=== PATIENT | female | born 1950 | race Caucasian/White ===

== ENCOUNTER 2020-03-02 08:36 | Outpatient (CLI) | payer MEDICARE, SELFPAY ==
[2020-03-02 09:22] LABS: Hematocrit 36.9 % (37.0-47.0); Hemoglobin 12.1 g/dL (12.0-15.0); Mean Corpuscular HGB Conc 32.8 g/dl (32-36); Mean Corpuscular Hemoglobin 32.2 pg (26-34); Mean Corpuscular Volume 98.1 fl (80-100); Mean Platelet Volume 11.4 fl (7.4-10.4); Platelet Count Result 228 k/mm3 (150-375); Red Blood Count 3.76 M/mm3 (4.2-5.4); Red Cell Distribution Width 13.2 % (11.5-14.5); White Blood Count 5.9 K/mm3 (4.5-10.0)
[2020-03-02 09:33] LABS: Hemoglobin A1C 5.7 % (<5.7)
[2020-03-02 09:36] LABS: Alanine Aminotransferase 11 U/L (4-35); Albumin Level 4.4 g/dL (3.5-5.1); Alkaline Phosphatase 113 U/L (38-126); Aspartate Amino Transferase 22 U/L (14-36); Bilirubin,Total 0.2 mg/dL (0.2-1.3); Blood Urea Nitrogen 15 mg/dL (7-17); Calcium 9.2 mg/dL (8.4-10.2); Carbon Dioxide 26 mmol/L (22-30); Chloride 107 mmol/L (98-107); Cholesterol 227 mg/dL (0-200); Estimated Glomerular Filt Rate 50; Glucose 126 mg/dL (65-105); HDL Direct 41 mg/dL; Potassium 4.1 mmol/L (3.4-5.0); Sodium 143 mmol/L (137-145); Triglycerides 176 mg/dL (<150)
[2020-03-02 09:47] LABS: LDL Cholesterol Direct 149 mg/dL
== END 2020-03-02 08:37 | disposition home or self-care (01) ==
PROVIDERS: PCP Internal Medicine; Visit Provider Internal Medicine
DX: R53.83 Other fatigue (principal); I10 Essential (primary) hypertension; E78.5 Hyperlipidemia, unspecified; R73.9 Hyperglycemia, unspecified
CPT/HCPCS: 36415; 80053; 80061; 83036; 84443; 85027

== ENCOUNTER 2020-03-19 10:17 | Outpatient (CLI) | payer MEDICARE, SELFPAY ==
[2020-03-19 10:59] LABS: Add Urine Microscopic? YES; Appearance Urine Cloudy (Clear); Bacteria Urine Trace /hpf; Bilirubin Urine Negative (Negative); Blood Urine 2+ (Negative); Color Urine Yellow (Yellow); Glucose Urine UA Negative (Negative); Ketones Urine Negative (Negative); Leukocyte Esterase Ur 3+ LEU/UL (Negative); Mucus Urine Rare /lpf; Nitrate Urine Negative (Negative); Protein Urine 1+ mg/dL (Negative); RBC Urine 21-50 /hpf (0-2); Specific Grav Ur 1.015 (1.001-1.035); Squamous Epithelial Cell Urine Few /hpf (Few); Urobilinogen Urine Negative mg/dL (<2.0); WBC Urine >75 /hpf
== END 2020-03-19 10:18 | disposition home or self-care (01) ==
PROVIDERS: PCP Internal Medicine; Visit Provider Internal Medicine
DX: R30.0 Dysuria (principal)
CPT/HCPCS: 81001; 87077; 87086; 87088; 87186

== ENCOUNTER 2020-07-27 09:24 | Outpatient (CLI) | payer MEDICARE, SELFPAY ==
--- NOTE | ~2020-07-27 | DEXA_ITS ---
Bone Density Report Name: Bre Huynh Age: 70 Sex: Female Ethnicity: White Date of : 1950 Indication: osteopenia; height loss; Referring Provider: Danyell, Fany Shepherd Study: Bone densitometry was performed. Exam Date: July 27, 2020 Accession number: [id number] Bone Density: Region BMD T-score Z-score Classification AP Spine (L1-L4) 0.989 -0.5 1.4 Normal Femoral Neck (Left) 0.703 -1.3 0.4 Osteopenia Total Hip (Left) 0.805 -1.1 0.3 Osteopenia Total Hip Bilateral Avg 0.782 -1.3 0.1 Osteopenia Femoral Neck (Right) 0.690 -1.4 0.3 Osteopenia Total Hip (Right) 0.758 -1.5 -0.1 Osteopenia World Health Organization criteria for BMD impression classify patients as: Normal (T-score at or above -1.0), Osteopenia (T-score between -1.0 and -2.5), or Osteoporosis (T-score at or below -2.5). 10-year Fracture Risk(1): Major Osteoporotic Fracture 9.3% Hip Fracture 1.1% Reported Risk Factors: [place] (), Neck BMD=0.690, BMI=27.7 (1) FRAX(R) Version 3.08. Fracture probability calculated for an untreated patient. Fracture probability may be lower if the patient has received treatment. Previous Exams: Region Exam Age BMD T-score BMD Change BMD Change Date g/cm2 vs Baseline vs Previous AP Spine(L1-L4) 07/27/2020 70 0.989 -0.5 -0.125(-11.2%) -0.085(-7.9%)# 07/07/2013 62 1.073 0.2 -0.040(-3.6%)# -0.039(-3.5%)# 07/04/2010 59 1.112 0.6 -0.001(-0.1%) -0.001(-0.1%) 03/29/2008 57 1.113 0.6 Total Hip(Left) 07/27/2020 70 0.805 -1.1 0.002(0.2%)# -0.004(-0.5%) 10/28/2017 67 0.808 -1.1 0.005(0.7%)# -0.041(-4.8%)# 07/07/2013 62 0.849 -0.8 0.046(5.8%)# 0.003(0.4%)# 07/04/2010 59 0.846 -0.8 0.043(5.3%)* 0.043(5.3%)* 03/29/2008 57 0.803 -1.1 Total Hip(Right) 07/27/2020 70 0.758 -1.5 -0.025(-3.1%)# -0.061(-7.4%)* 10/28/2017 67 0.819 -1.0 0.036(4.7%)# 0.023(2.9%)# 07/07/2013 62 0.796 -1.2 0.014(1.7%)# 0.003(0.4%)# 07/04/2010 59 0.793 -1.2 0.010(1.3%) 0.010(1.3%) 03/29/2008 57 0.782 -1.3 *Denotes significance at 95% confidence level, LSC for AP Spine = 0.022 g/cm2, LSC for Total Hip = 0.027 g/cm2 Clinical Information Provided by Patient: Patient maximum height was 69 Menopause Age: 54 Drinks caffeinated beverages Onset of menses at age 15 Number of children 3 Impression: The patient has low bone mass, based on the Alexandra
--- NOTE | ~2020-07-27 | MM_ITS ---
EXAMINATION: MM screening nikunj BI w julia HISTORY: Screening mammogram TECHNIQUE: Craniocaudal and mediolateral oblique 3-D tomosynthesis images were obtained and synthetic 2-D images were generated. CAD analysis was submitted and interpreted. COMPARISON: 11/02/2018, 10/28/2017, 10/27/2016 bilateral digital screening mammogram examinations BREAST PARENCHYMAL COMPOSITION: There are scattered areas of fibroglandular density. FINDINGS: Occasional bilateral benign calcifications. There is no evidence of suspicious mass, calcif ication, or architectural distortion to suggest malignancy in either breast. There has been no suspic ious interval change. IMPRESSION: 1. No mammographic evidence of malignancy. 2. Recommend routine screening mammography in one year. BI-RADS Category 1: Negative Reviewed, dictated and finalized at location A. PHONIC CASE MANAGER
== END 2020-07-27 09:25 | disposition home or self-care (01) ==
PROVIDERS: PCP Internal Medicine; Visit Provider Nurse Practitioner Obstetrics & Gynecology
DX: Z12.31 Encounter for screening mammogram for malignant neoplasm of breast (principal); Z78.0 Asymptomatic menopausal state; M85.852 Other specified disorders of bone density and structure, left thigh; M85.851 Other specified disorders of bone density and structure, right thigh; M85.88 Other specified disorders of bone density and structure, other site
CPT/HCPCS: 77063; 77067; 77080

== ENCOUNTER 2021-03-18 08:17 | Outpatient (CLI) | payer MEDICARE, SELFPAY ==
[2021-03-18 08:55] LABS: Basophils Absolute Auto 0.1 K/mm3 (0.0-0.1); Basophils Percent Auto 0.8 % (0.2-1.2); Eosinophils Absolute Auto 0.5 K/mm3 (0-0.3); Eosinophils Percent Auto 7.5 % (0-4.4); Hematocrit 35.7 % (37.0-47.0); Hemoglobin 11.9 g/dL (12.0-15.0); Immature Granulocyte Absolute 0.01 K/mm3 (0.00-0.031); Immature Granulocyte Percent A 0.2 % (0-0.5); Lymphocytes Absolute Auto 2.06 K/mm3 (0.9-3.2); Lymphocytes Percent Auto 32.2 % (18.3-44.2); Mean Corpuscular HGB Conc 33.3 g/dl (32-36); Mean Corpuscular Hemoglobin 32.2 pg (26-34); Mean Corpuscular Volume 96.7 fl (80-100); Mean Platelet Volume 10.4 fl (7.4-10.4); Monocytes Absolute Auto 0.5 K/mm3 (0.1-0.6); Monocytes Percent Auto 7.5 % (2.6-8.5); Neutrophils Absolute Auto 3.3 K/mm3 (1.3-6.7); Neutrophils Percent Auto 51.8 % (45.5-73.1); Platelet Count Result 276 k/mm3 (150-375); Red Blood Count 3.69 M/mm3 (4.2-5.4); Red Cell Distribution Width 12.8 % (11.5-14.5); White Blood Count 6.4 K/mm3 (4.5-10.0)
[2021-03-18 11:15] LABS: Alanine Aminotransferase 14 U/L (4-35); Albumin Level 4.4 g/dL (3.5-5.1); Alkaline Phosphatase 113 U/L (38-126); Anion Gap 12 mmol/L (8-16); Aspartate Amino Transferase 21 U/L (14-36); Bilirubin,Total 0.5 mg/dL (0.2-1.3); Blood Urea Nitrogen 20 mg/dL (7-17); Calcium 9.7 mg/dL (8.4-10.2); Carbon Dioxide 21 mmol/L (22-30); Chloride 106 mmol/L (98-107); Cholesterol 273 mg/dL (0-200); Estimated Glomerular Filt Rate 45; Glucose 114 mg/dL (65-110); HDL Direct 42 mg/dL; Potassium 4.3 mmol/L (3.4-5.0); Sodium 139 mmol/L (137-145); Triglycerides 185 mg/dL (<150)
[2021-03-18 11:34] LABS: LDL Cholesterol Direct 158 mg/dL
[2021-03-18 11:47] LABS: Hemoglobin A1C 5.6 % (<5.7)
[2021-03-18 12:59] LABS: Folic Acid > 20.0 ng/mL (2.76->20)
== END 2021-03-18 08:18 | disposition home or self-care (01) ==
PROVIDERS: PCP Internal Medicine; Visit Provider Internal Medicine
DX: R73.9 Hyperglycemia, unspecified (principal); R53.83 Other fatigue; E78.5 Hyperlipidemia, unspecified
CPT/HCPCS: 36415; 80053; 80061; 82607; 82746; 83036; 84443; 85025

== ENCOUNTER 2021-03-28 14:31 | Emergency (ER) | payer MEDICARE, SELFPAY ==
[2021-03-28 14:45] VITALS: BP 148/72; PULSE 79; RESP 18; TEMP 36.9; O2SAT 100
--- NOTE | 2021-03-28 15:02 | ED.LOWEXIN ---
HPI - Extremity Injury (Lower) General Chief Complaint: Extremity Injury, Lower Stated Complaint: RIGHT ANKLE Source: patient and RN notes reviewed Mode of arrival: ambulatory History of Present Illness HPI Narrative: This is a 67-year-old female that presented to urgent care with right ankle swelling and redness. According to patient she was in her yard approximately 2 days ago when she felt a insect bite her right ankle she spotted insect and think that she might have turned her ankle the wrong way. She is not sure if the swelling and redness is a result of her twisting her ankle or a insect bite .Patient did not do anything at home to relieve her symptoms, she did note that she elevated her legs at night with seem to decrease the swelling. The patient denies SOB, CP, palpitation, extremity numbness, lightheadedness, dizziness, constipation, diarrhea, chills, or fever. Sensations positive no neurovascular defects, patient has full range of motion, pulses are positive. Related Data Home Medications Medication Instructions Recorded Confirmed carvedilol 25 mg PO BID 03/28/21 03/28/21 duloxetine 60 mg PO DAILY 03/28/21 03/28/21 lisinopril 40 mg PO DAILY 03/28/21 03/28/21 Allergies Allergy/AdvReac Type Severity Reaction Status Date / Time metronidazole Allergy Mild NAUSEA/VOMI Verified 03/28/21 14:52 TING propoxyphene Allergy Mild INCREASED Verified 03/28/21 14:52 HR tetracycline Allergy Mild UNKNOWN Verified 03/28/21 14:52 hydrocodone AdvReac Mild INCREASED Verified 03/28/21 14:52 HEART RATE Review of Systems Review of Systems: A 14 organ system Review of Systems was performed and pertinent positives included in the HPI, otherwise remaining ROS is negative. [facility] Family History Family History Sibling Family history of diabetes mellitus in first degree relative, Onset Age: 20 Patient's brother is Family history of lung cancer Mother Patient's mother is Father Patient's father is Social History Social History Smoking status: Never smoker Second hand tobacco smoke exposure: No Alcohol intake: never Substance use: never Gender identity (if verbalized by the patient): Female Exam Narrative: GENERAL: This is a well-nourished, well-developed patient, in no apparent distress. HEAD: normocephalic, atraumatic. EYES: PERRL. Sclera clear/white. Vision is grossly intact. EARS: External ears normal, auditory canals clear and without drainage, TMs normal without perforation. Hearing grossly intact. NOSE: External nose normal with no obvious nasal discharge, nares without redness, no rhinorrhea. THROAT: Mucous membranes moist, posterior pharynx clear. NECK: Neck supple, non-tender without lymphadenopathy, masses or thyromegaly. CARDIOVASCULAR: Regular rate and rhythm without murmurs, gallops, or rubs. RESPIRATORY: Clear to auscultation. Breath sounds equal bilaterally. No wheezes, rales, or rhonchi. GASTROINTESTINAL: Abdomen soft, non-tender, nondistended. Bowel sounds are active. No hepato-splenomegaly, or palpable masses. No guarding. SKIN: warm, intact with no suspicious lesions or rash, good texture and turgor. NEURO: awake, alert, and oriented to person, place and time. There were no obvious focal neurologic abnormalities. Steady gait EXTREMITIES: Normal range of motion. No edema. No calf tenderness. Negative Homans sign bilaterally. BACK: Nontender without deformity or crepitance. No flank tenderness. Course Course Emergency Course: Patient given clindamycin for cellulitis instructed to ice take [id number] Tylenol for fever or pain Vital Signs Vital signs: Vital Signs Temperature 98.5 F 03/28/21 14:45 Pulse Rate 79 03/28/21 14:45 Respiratory Rate 18 03/28/21 14:45 Blood Pressure 148/72 H 03/28/21 14:45
== END 2021-03-28 15:20 | disposition home or self-care (01) ==
PROVIDERS: Emergency Provider Nurse Practitioner; PCP Internal Medicine
DX: L03.116 Cellulitis of left lower limb (principal); S90.561A Insect bite (nonvenomous), right ankle, initial encounter; W57.XXXA Bitten or stung by nonvenomous insect and other nonvenomous arthropods, initial encounter
CPT/HCPCS: 99213; G0463

== ENCOUNTER 2021-09-23 07:28 | Outpatient (CLI) | payer MEDICARE, SELFPAY ==
[2021-09-23 08:26] LABS: Basophils Absolute Auto 0.1 K/mm3 (0.0-0.1); Basophils Percent Auto 0.7 % (0.2-1.2); Eosinophils Absolute Auto 0.3 K/mm3 (0-0.3); Eosinophils Percent Auto 4.3 % (0-4.4); Hematocrit 34.8 % (37.0-47.0); Hemoglobin 11.6 g/dL (12.0-15.0); Immature Granulocyte Absolute 0.02 K/mm3 (0.00-0.031); Immature Granulocyte Percent A 0.3 % (0-0.5); Lymphocytes Absolute Auto 2.23 K/mm3 (0.9-3.2); Lymphocytes Percent Auto 32.3 % (18.3-44.2); Mean Corpuscular HGB Conc 33.3 g/dl (32-36); Mean Corpuscular Hemoglobin 31.8 pg (26-34); Mean Corpuscular Volume 95.3 fl (80-100); Mean Platelet Volume 10.8 fl (7.4-10.4); Monocytes Absolute Auto 0.6 K/mm3 (0.1-0.6); Monocytes Percent Auto 8.1 % (2.6-8.5); Neutrophils Absolute Auto 3.8 K/mm3 (1.3-6.7); Neutrophils Percent Auto 54.3 % (45.5-73.1); Platelet Count Result 295 k/mm3 (150-375); Red Blood Count 3.65 M/mm3 (4.2-5.4); Red Cell Distribution Width 13.3 % (11.5-14.5); White Blood Count 6.9 K/mm3 (4.5-10.0)
[2021-09-23 08:40] LABS: Alanine Aminotransferase 16 U/L (4-35); Albumin Level 4.3 g/dL (3.5-5.1); Alkaline Phosphatase 100 U/L (38-126); Anion Gap 7 mmol/L (8-16); Aspartate Amino Transferase 23 U/L (14-36); Bilirubin,Total 0.3 mg/dL (0.2-1.3); Blood Urea Nitrogen 16 mg/dL (7-17); Calcium 9.3 mg/dL (8.4-10.2); Carbon Dioxide 27 mmol/L (22-30); Chloride 106 mmol/L (98-107); Cholesterol 247 mg/dL (0-200); Estimated Glomerular Filt Rate 49; Glucose 124 mg/dL (65-110); HDL Direct 30 mg/dL; Potassium 4.1 mmol/L (3.4-5.0); Sodium 140 mmol/L (137-145); Triglycerides 209 mg/dL (<150)
[2021-09-23 08:49] LABS: Hemoglobin A1C 5.7 % (<5.7)
[2021-09-23 08:51] LABS: LDL Cholesterol Direct 150 mg/dL
== END 2021-09-23 07:29 | disposition home or self-care (01) ==
PROVIDERS: PCP Internal Medicine; Visit Provider Internal Medicine
DX: R53.83 Other fatigue (principal); R73.9 Hyperglycemia, unspecified; E78.5 Hyperlipidemia, unspecified
CPT/HCPCS: 36415; 80053; 80061; 83036; 85025

== ENCOUNTER 2021-12-02 10:11 | Outpatient (CLI) | payer MEDICARE, SELFPAY ==
--- NOTE | ~2021-12-02 | MM_ITS ---
EXAMINATION: MM screening nikunj BI w julia HISTORY: Screening mammogram TECHNIQUE: Craniocaudal and mediolateral oblique 3-D tomosynthesis images were obtained and synthetic 2-D images were generated. CAD analysis was submitted and interpreted. COMPARISON: 07/2020, 11/02/2018, 10/28/2017 bilateral screening mammogram examinations BREAST PARENCHYMAL COMPOSITION: There are scattered areas of fibroglandular density. FINDINGS: There is no evidence of suspicious mass, calcification, or architectural distortion to sugg est malignancy in either breast. There has been no suspicious interval change. IMPRESSION: 1. No mammographic evidence of malignancy. 2. Recommend routine screening mammography in one year. BI-RADS Category 1: Negative Reviewed, dictated and finalized at location A.
== END 2021-12-02 10:12 | disposition home or self-care (01) ==
LOC: ANHIMG 10:12
PROVIDERS: PCP Internal Medicine; Visit Provider Nurse Practitioner Obstetrics & Gynecology
DX: Z12.31 Encounter for screening mammogram for malignant neoplasm of breast (principal)
CPT/HCPCS: 77063; 77067

== ENCOUNTER 2022-06-22 15:43 | Emergency (ER) | payer MEDICARE, SELFPAY ==
--- NOTE | ~2022-06-22 | XR_ITS ---
EXAM: XR shoulder LT min 2V DATE: 06/22/2022 16:53 HISTORY: pain/trauma . COMPARISON: None available. FINDINGS: Normal mineralization. No fracture or dislocation. No lytic or blastic lesion. Mild degene rative change at the acromioclavicular and glenohumeral joints. No erosion or periosteal change. Soft tissues within normal limits. IMPRESSION: No acute osseous finding in the left shoulder. Reviewed, dictated and finalized at location K.
[2022-06-22 16:02] VITALS: BP 150/61; PULSE 73; RESP 18; TEMP 36.5; O2SAT 100
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
== END 2022-06-22 17:35 | disposition home or self-care (01) ==
PROVIDERS: Emergency Provider Emergency Medicine; PCP Internal Medicine
DX: S46.912A Strain of unspecified muscle, fascia and tendon at shoulder and upper arm level, left arm, initial encounter (principal); I10 Essential (primary) hypertension; E78.5 Hyperlipidemia, unspecified; I34.1 Nonrheumatic mitral (valve) prolapse; K21.9 Gastro-esophageal reflux disease without esophagitis; Z86.2 Personal history of diseases of the blood and blood-forming organs and certain disorders involving the immune mechanism; V43.52XA Car driver injured in collision with other type car in traffic accident, initial encounter
CPT/HCPCS: 73030; 99283

== ENCOUNTER 2022-07-06 13:53 | Emergency (ER) | payer MEDICARE, SELFPAY ==
[2022-07-06] VITALS (18 sets, daily range): BP systolic 152–170; BP diastolic 58–86; PULSE 73–88; RESP 12–16; O2SAT 99–100
--- NOTE | ~2022-07-06 | XR_ITS ---
XR thoracic spine 3V DATE: 07/06/2022 15:55 INDICATION: Back pain, radiculopathy. TECHNIQUE: AP, lateral, swimmer views COMPARISON: None FINDINGS: There is diffuse osteopenia. There is mild degenerative spurring of the thoracic spine. No fracture or bone destruction is evident . The thoracic pedicles are intact. No paraspinal soft tissue thickening. IMPRESSION: Osteopenia and mild degenerative change Reviewed, dictated and finalized at location A. TOP SUPPORT MANAGER
--- NOTE | ~2022-07-06 | XR_ITS ---
XR lumbar spine 2-3V DATE: 07/06/2022 15:55 INDICATION: Back pain, right sciatica, numbness TECHNIQUE: AP, lateral, coned lateral lumbosacral views COMPARISON: None FINDINGS: Mild levoscoliosis. Normal alignment of the lumbar spine. No fracture or bone destruction i s detected. The lumbar pedicles are intact. There is mild degenerative disc disease at the lumbar interspaces. L5-S1 interspace is well preserved . The sacroiliac joints are intact. Surgical clips, right upper quadrant, likely due to cholecystectomy. IMPRESSION: Mild degenerative disc disease Mild levoscoliosis Status post cholecystectomy Reviewed, dictated and finalized at location A. TRIC POWER SUPERINTENDENT
[2022-07-06] MEDS: SODIUM CHLORIDE 0.9% IV 1,000 ML 999 ML IV CONT (16:49)
[2022-07-06 16:56] LABS: Basophils Absolute Auto 0.1 K/mm3 (0.0-0.1); Basophils Percent Auto 0.5 % (0.2-1.2); Eosinophils Absolute Auto 0.3 K/mm3 (0-0.3); Eosinophils Percent Auto 2.1 % (0-4.4); Hemoglobin 12.8 g/dL (12.0-15.0); Immature Granulocyte Absolute 0.04 K/mm3 (0.00-0.031); Immature Granulocyte Percent A 0.3 % (0-0.5); Lymphocytes Absolute Auto 2.45 K/mm3 (0.9-3.2); Lymphocytes Percent Auto 20.2 % (18.3-44.2); Mean Corpuscular HGB Conc 33.7 g/dl (32-36); Mean Corpuscular Hemoglobin 32.9 pg (26-34); Mean Corpuscular Volume 97.7 fl (80-100); Monocytes Absolute Auto 0.5 K/mm3 (0.1-0.6); Monocytes Percent Auto 3.7 % (2.6-8.5); Neutrophils Absolute Auto 8.9 K/mm3 (1.3-6.7); Neutrophils Percent Auto 73.2 % (45.5-73.1); Platelet Count Result 284 k/mm3 (150-375); Red Blood Count 3.89 M/mm3 (4.2-5.4); Red Cell Distribution Width 12.8 % (11.5-14.5); White Blood Count 12.1 K/mm3 (4.5-10.0)
[2022-07-06 17:16] LABS: Anion Gap 15 mmol/L (8-16); Blood Urea Nitrogen 24 mg/dL (7-17); Calcium 9.6 mg/dL (8.4-10.2); Carbon Dioxide 23 mmol/L (22-30); Chloride 103 mmol/L (98-107); Estimated CRCL calculation 36 ml/min; Estimated Glomerular Filt Rate 37; Glucose 111 mg/dL (65-110); Sodium 141 mmol/L (137-145)
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
== END 2022-07-06 18:34 | disposition home or self-care (01) ==
PROVIDERS: Emergency Provider Emergency Medicine; PCP Internal Medicine
DX: M51.16 Intervertebral disc disorders with radiculopathy, lumbar region (principal); I10 Essential (primary) hypertension; K21.9 Gastro-esophageal reflux disease without esophagitis; I34.1 Nonrheumatic mitral (valve) prolapse; E78.5 Hyperlipidemia, unspecified; Z86.2 Personal history of diseases of the blood and blood-forming organs and certain disorders involving the immune mechanism; M85.88 Other specified disorders of bone density and structure, other site
CPT/HCPCS: 36415; 72072; 72100; 80048; 85025; 96360; 99283; J7030

== ENCOUNTER 2022-08-05 14:27 | Outpatient (CLI) | payer MEDICARE, SELFPAY ==
--- NOTE | ~2022-08-05 | MR_ITS ---
EXAMINATION: MR thoracic spine wo con, MR lumbar spine wo con DATE: 08/05/2022 16:31 INDICATION: Lumbar and lower thoracic spine pain, flank pain and left leg weakness TECHNIQUE: 1. Magnetic resonance imaging (MRI) of the thoracic spine was performed without intravenous contrast. Sagittal localizer T1-weighted FSE of the cervicothoracic spine was obtained. Thoracic spine sequenc es included sagittal T2-weighted FSE, sagittal T1-weighted SE, Sagittal T2-weighted FS FSE, and axial T2-weighted FSE. 2. MRI of the lumbar spine was performed without intravenous contrast. Sequences included sagittal T2 -weighted FSE, sagittal T2-weighted FS FSE, sagittal T1-weighted FSE, and axial T2-weighted FSE. COMPARISON: Thoracic and lumbar spine radiographs dated 07/06/2022 FINDINGS: THORACIC SPINE MRI: 6 degrees mid to lower thoracic dextrocurvature. Mild upper thoracic kyphosis. 1 mm anterolisthesis T 2 on T3. Vertebral body heights are normal. Severe anterior disc height loss at T5-T6 with associated fibrofatty degenerative endplate changes. Moderate disc height loss at T2-T3, T3-T4 and, T6-T7 and T 8-T9. Mild disc height loss at T4-T5 and T7-T8. Small left foraminal zone disc protrusions at T6-T7 t hrough T8-T9 without significant central canal stenosis. Multilevel mild thoracic facet osteoarthriti s which contributes to mild neural foraminal stenosis on the right at T3-T4 and T6-T7 and on the left at T1-T2 through T4-T5 and at T8-T9. There is normal spinal cord signal. Paravertebral soft tissues are unremarkable. LUMBAR SPINE MRI: Subtle degree lumbar levocurvature. 3 mm anterolisthesis L4 on L5. Disc desiccation with mild disc he ight loss at L3-L4 and mild to moderate disc height loss at L4-L5. The conus medullaris terminates at L1-L2. There is normal signal in the caudal spinal cord. Paravertebral soft tissues are unremarkable . The following disc levels are specifically discussed: T12-L1: The disc does not extend beyond the endplate margin. There is moderate bilateral facet joint osteoarthritis. There is no neural foraminal stenosis. There is no central canal stenosis. L1-L2: Disc is minimally bulging. There is moderate bilateral facet joint osteoarthritis. There is mi ld bilateral neural foraminal stenosis. There is no central canal stenosis. L2-L3: Disc is minimally bulging. There is right and mild to moderate left facet joint osteoarthritis . There is mild bilateral neural foraminal stenosis. There is mild central canal stenosis. L3-L4: Disc is mildly bulging. There is hypertrophy of the ligamentum flavum. There is moderate to se flor bilateral facet joint osteoarthritis. There is mild left and mild to moderate right neural john inal stenosis. There is mild to moderate central canal stenosis. L4-L5: Disc is bulging with superimposed left foraminal zone annular fissure. There is hypertrophy of the ligamentum flavum. There is severe bilateral facet joint osteoarthritis. There is moderate bilat eral neural foraminal stenosis. There is moderate to severe central canal stenosis as well as of the left and right lateral recesses. L5-S1: Disc is mildly bulging. There is moderate bilateral facet joint osteoarthritis. There is mild bilateral neural foraminal stenosis. There is no central canal stenosis. IMPRESSION: 1. Mild upper thoracic kyphosis and mild mid to lower thoracic dextrocurvature with moderate to sever e spondylosis. 2. Mild lumbar levocurvature with mild to moderate spondylosis most notable for moderate to severe ce ntral canal stenosis at L4-L5. Reviewed, dictated and finalized at location A. NG CUTTER IMPRESSION: 1. Mild upper thoracic kyphosis and mild mid to lower thoracic dextrocurvature with moderate to severe spondylosis. 2
== END 2022-08-05 14:28 | disposition home or self-care (01) ==
PROVIDERS: PCP Internal Medicine; Visit Provider Internal Medicine
DX: M54.9 Dorsalgia, unspecified (principal); R10.9 Unspecified abdominal pain; R29.898 Other symptoms and signs involving the musculoskeletal system; M47.811 Spondylosis without myelopathy or radiculopathy, occipito-atlanto-axial region; M40.204 Unspecified kyphosis, thoracic region; M48.061 Spinal stenosis, lumbar region without neurogenic claudication
CPT/HCPCS: 72146; 72148

== ENCOUNTER 2022-12-05 07:45 | Outpatient (CLI) | payer MEDICARE, SELFPAY ==
[2022-12-05 08:27] LABS: Basophils Absolute Auto 0.1 K/mm3 (0.0-0.1); Basophils Percent Auto 0.8 % (0.2-1.2); Eosinophils Absolute Auto 0.4 K/mm3 (0-0.3); Eosinophils Percent Auto 6.8 % (0-4.4); Hemoglobin 12.1 g/dL (12.0-15.0); Immature Granulocyte Absolute 0.02 K/mm3 (0.00-0.031); Immature Granulocyte Percent A 0.3 % (0-0.5); Lymphocytes Absolute Auto 2.67 K/mm3 (0.9-3.2); Lymphocytes Percent Auto 41.2 % (18.3-44.2); Mean Corpuscular HGB Conc 32.7 g/dl (32-36); Mean Corpuscular Hemoglobin 31.9 pg (26-34); Mean Corpuscular Volume 97.6 fl (80-100); Mean Platelet Volume 10.3 fl (7.4-10.4); Monocytes Absolute Auto 0.5 K/mm3 (0.1-0.6); Monocytes Percent Auto 7.6 % (2.6-8.5); Neutrophils Absolute Auto 2.8 K/mm3 (1.3-6.7); Neutrophils Percent Auto 43.3 % (45.5-73.1); Platelet Count Result 284 k/mm3 (150-375); Red Blood Count 3.79 M/mm3 (4.2-5.4); Red Cell Distribution Width 12.7 % (11.5-14.5); White Blood Count 6.5 K/mm3 (4.5-10.0)
[2022-12-05 09:03] LABS: Alanine Aminotransferase 21 U/L (6-35); Albumin Level 4.4 g/dL (3.5-5.1); Alkaline Phosphatase 110 U/L (38-126); Anion Gap 7 mmol/L (8-16); Aspartate Amino Transferase 23 U/L (14-36); Bilirubin,Total 0.5 mg/dL (0.2-1.3); Blood Urea Nitrogen 20 mg/dL (7-17); Calcium 9.2 mg/dL (8.4-10.2); Carbon Dioxide 31 mmol/L (22-30); Chloride 103 mmol/L (98-107); Cholesterol 271 mg/dL (0-200); Estimated Glomerular Filt Rate 37; Glucose 119 mg/dL (65-110); HDL Direct 35 mg/dL; Potassium 4.6 mmol/L (3.4-5.0); Sodium 141 mmol/L (137-145); Triglycerides 188 mg/dL (<150)
[2022-12-05 09:28] LABS: LDL Cholesterol Direct 179 mg/dL
[2022-12-05 09:35] LABS: Iron 75 ug/dL (37-170)
[2022-12-05 09:36] LABS: Hemoglobin A1C 5.8 % (<5.7)
[2022-12-05 09:50] LABS: Percent Iron Saturation 26 % (20-50)
[2022-12-05 10:05] LABS: Folic Acid 17.9 ng/mL (2.76->20)
== END 2022-12-05 07:46 | disposition home or self-care (01) ==
PROVIDERS: PCP Internal Medicine; Visit Provider Internal Medicine
DX: E78.5 Hyperlipidemia, unspecified (principal); R73.9 Hyperglycemia, unspecified; D64.9 Anemia, unspecified
CPT/HCPCS: 36415; 80053; 80061; 82607; 82746; 83036; 83540; 83550; 84443; 85025

== ENCOUNTER 2022-12-09 14:22 | Emergency (ER) | payer MEDICARE, SELFPAY ==
[2022-12-09] VITALS (9 sets, daily range): BP systolic 131–155; BP diastolic 60–77; PULSE 65–87; RESP 13–20; TEMP 36.7; O2SAT 96–100
--- NOTE | ~2022-12-09 | XR_ITS ---
EXAMINATION: XR chest 2V 12/09/2022 14:55 INDICATION: Shortness of breath and chest pain PROCEDURE: 2 view chest COMPARISON: Comparison to multiple prior studies sequentially, with oldest reviewed study dated 09/15. FINDINGS: The lungs are clear. The cardiomediastinal silhouette is within normal limits. There are no pleural effusions. There is no pneumothorax suspected. IMPRESSION: 1: NO ACUTE CARDIOPULMONARY DISEASE. Reviewed, dictated and finalized at location A.
--- NOTE | 2022-12-09 14:39 | ECG_ITS ---
Measurements Intervals [place] Rate: 78 P: 29 VA: 140 QRS: 5 QRSD: 88 T: 30 QT: 350 QTc: 399 Interpretive Statements SINUS RHYTHM LOW QRS VOLTAGE IN PRECORDIAL LEADS [QRS DEFLECTION < 1.0 mV IN CHEST LEADS] MINIMAL ST DEPRESSION [0.025+ mV ST DEPRESSION] NO PREVIOUS ECG AVAILABLE FOR COMPARISON Electronically Signed On 12-09-2022 18:04:49 CDT by Raj Tipton M.D.
[2022-12-09 14:57] LABS: Basophils Absolute Auto 0.1 K/mm3 (0.0-0.1); Basophils Percent Auto 0.9 % (0.2-1.2); Eosinophils Absolute Auto 0.4 K/mm3 (0-0.3); Eosinophils Percent Auto 5.7 % (0-4.4); Hematocrit 35.9 % (37.0-47.0); Immature Granulocyte Absolute 0.02 K/mm3 (0.00-0.031); Immature Granulocyte Percent A 0.3 % (0-0.5); Lymphocytes Absolute Auto 2.89 K/mm3 (0.9-3.2); Lymphocytes Percent Auto 39.2 % (18.3-44.2); Mean Corpuscular HGB Conc 33.4 g/dl (32-36); Mean Corpuscular Hemoglobin 33.1 pg (26-34); Mean Corpuscular Volume 98.9 fl (80-100); Monocytes Absolute Auto 0.5 K/mm3 (0.1-0.6); Monocytes Percent Auto 6.9 % (2.6-8.5); Neutrophils Absolute Auto 3.5 K/mm3 (1.3-6.7); Platelet Count Result 275 k/mm3 (150-375); Red Blood Count 3.63 M/mm3 (4.2-5.4); Red Cell Distribution Width 12.8 % (11.5-14.5); White Blood Count 7.4 K/mm3 (4.5-10.0)
[2022-12-09 15:06] LABS: Alanine Aminotransferase 22 U/L (6-35); Albumin Level 4.6 g/dL (3.5-5.1); Alkaline Phosphatase 107 U/L (38-126); Anion Gap 8 mmol/L (8-16); Aspartate Amino Transferase 27 U/L (14-36); Bilirubin,Total 0.5 mg/dL (0.2-1.3); Blood Urea Nitrogen 20 mg/dL (7-17); Calcium 9.3 mg/dL (8.4-10.2); Carbon Dioxide 26 mmol/L (22-30); Chloride 104 mmol/L (98-107); Estimated CRCL calculation 41 ml/min; Estimated Glomerular Filt Rate 44; Glucose 98 mg/dL (65-110); Lipase 60 U/L (23-300); Potassium 4.1 mmol/L (3.4-5.0); Sodium 138 mmol/L (137-145)
[2022-12-09 15:07] LABS: INR 1.1; Prothrombin Time 13.3 Seconds (11.1-14.7)
[2022-12-09 15:08] LABS: Partial Thromboplastin Time 25.4 SECONDS (22.3-36.8)
[2022-12-09 15:35] LABS: Troponin I < 0.012 ng/mL (0.000-0.034)
--- NOTE | 2022-12-09 16:30 | PC.NURSE ---
pts daughter pacing in doorway. voices displeasure about wait times. made aware of dept status. pt resting quietly on stretcher with no distress noted.
--- NOTE | 2022-12-09 16:56 | ED.GENADULT ---
HPI - General Adult General Chief complaint: Shortness of Breath/Dyspnea Stated complaint: SOB Time Seen by Provider: 12/09/22 15:37 History of Present Illness HPI narrative: 72-year-old female with past medical history of spinal stenosis presents for an upper back pain which began while she was visiting someone in our hospital symptoms were short-lived and resolved by the time patient came to the emergency department. She did experience some shortness of breath only and that it irritated her back when she took a deep breath. Related Data Home Medications Medication Instructions Recorded Confirmed duloxetine 60 mg capsule,delayed 60 mg PO DAILY 03/28/21 10/23/22 release apple cider vinegar 300 mg tablet mg PO 12/02/21 10/23/22 ascorbic acid 100 mg-elderberry tablet PO 12/02/21 10/23/22 fruit 50 mg chewable tablet (Airborne (elderberry)) cholecalciferol (vitamin D3) 25 25 mcg PO DAILY 12/02/21 10/23/22 mcg (1,000 unit) capsule mecobalamin (vitamin B12) 1,000 1,000 mcg PO DAILY 12/02/21 10/23/22 mcg chewable tablet Allergies Allergy/AdvReac Type Severity Reaction Status Date / Time metronidazole Allergy Mild NAUSEA/VOMI Verified 10/23/22 13:22 TING propoxyphene Allergy Mild INCREASED Verified 10/23/22 13:22 HR tetracycline Allergy Mild UNKNOWN Verified 10/23/22 13:22 hydrocodone AdvReac Mild INCREASED Verified 10/23/22 13:22 HEART RATE Review of Systems Review of Systems: CONSTITUTIONAL: Denies fever, chills, or sweats. EYES: Denies visual changes, redness, or discharge. ENT: Denies rhinorrhea, congestion, sore throat, or otalgia. CARDIOVASCULAR: Denies chest pain, palpitations, or edema. RESPIRATORY: Denies cough or dyspnea. GASTROINTESTINAL: Denies abdominal pain, nausea, vomiting, or diarrhea. GENITOURINARY: Denies dysuria or hematuria. SKIN: Denies rash or itching. MUSCULOSKELETAL: Denies back pain, joint pain, or myalgia. NEUROLOGIC: Denies headache, numbness, or weakness. PSYCHIATRIC: Denies anxiety or depression. [facility] Past Medical History Medical History Anemia Essential (primary) hypertension Gastro-esophageal reflux disease without esophagitis History of mitral valve prolapse Hyperglycemia Hyperlipidemia Lumbar stenosis Surgical History Surgical History History of cholecystectomy Family History Family History Sibling Family history of diabetes mellitus in first degree relative, Onset Age: 20 Patient's brother is Family history of lung cancer Mother Patient's mother is Father Patient's father is Social History Social History Smoking status: Never smoker Second hand tobacco smoke exposure: No Alcohol intake: never Substance use: never Lack of Transportation: No Lack of Food: Never True Current Housing: I Have Housing Concerned About Future Housing: No Difficulty Paying Gas/Electric Bills: No Difficulty Paying for Meds: No Currently Unemployed: No Education: Associate Degree Difficulty w/ Childcare or Family Care: No Gender identity (if verbalized by the patient): Female Exam Narrative: GENERAL: Well-appearing, well-nourished, and in no acute distress. HEAD: Normocephalic, atraumatic. EYES: PERRLA and EOMI. ENT: Nares clear, no rhinorrhea or epistaxis. Mucous membranes moist. NECK: Supple. CHEST: Clear to auscultation. No respiratory distress. HEART: Regular rate and rhythm. No murmur heard. Normal peripheral pulses. ABDOMEN: Soft, nontender, nondistended, normal active bowel sounds. EXTREMITIES: Normal range of motion. No edema. SKIN: Warm, dry, no rash. NEURO: No focal deficits. Alert and oriented x3. PSYCH: Normal mood and affect.
[2022-12-09] MEDS: KETOROLAC 15 MG/ML VIAL (*BKC) IV PUSH (17:24)
== END 2022-12-10 00:58 | disposition home or self-care (01) ==
PROVIDERS: Emergency Medicine; Emergency Provider Emergency Medicine; PCP Internal Medicine
DX: M54.6 Pain in thoracic spine (principal); I10 Essential (primary) hypertension; I34.1 Nonrheumatic mitral (valve) prolapse; E78.5 Hyperlipidemia, unspecified; D64.9 Anemia, unspecified; K21.9 Gastro-esophageal reflux disease without esophagitis; Z90.49 Acquired absence of other specified parts of digestive tract; R06.02 Shortness of breath
CPT/HCPCS: 36415; 71046; 80053; 83690; 84484; 85025; 85610; 85730; 93005; 96374; 99284; J1885

== ENCOUNTER 2023-01-21 14:12 | Outpatient (CLI) | payer MEDICARE, SELFPAY ==
--- NOTE | ~2023-01-21 | MM_ITS ---
EXAMINATION: MM screening nikunj BI w julia HISTORY: Screening mammogram TECHNIQUE: Craniocaudal and mediolateral oblique 3-D tomosynthesis images were obtained and synthetic 2-D images were generated. CAD analysis was submitted and interpreted. COMPARISON: 12/02/2021, 07/27/2020, 11/02/2018 bilateral screening mammogram examinations BREAST PARENCHYMAL COMPOSITION: There are scattered areas of fibroglandular density. FINDINGS: There is no evidence of suspicious mass, calcification, or architectural distortion to sugg est malignancy in either breast. There has been no suspicious interval change. IMPRESSION: 1. No mammographic evidence of malignancy. 2. Recommend routine screening mammography in one year. BI-RADS Category 1: Negative Reviewed, dictated and finalized at location A.
== END 2023-01-21 14:13 | disposition home or self-care (01) ==
LOC: ANHIMG 14:15
PROVIDERS: PCP Internal Medicine; Visit Provider Nurse Practitioner Obstetrics & Gynecology
DX: Z12.31 Encounter for screening mammogram for malignant neoplasm of breast (principal)
CPT/HCPCS: 77063; 77067

== ENCOUNTER 2023-05-02 08:24 | Emergency (ER) | payer MEDICARE, SELFPAY ==
[2023-05-02 08:30] VITALS: BP 141/85; PULSE 98; RESP 20; TEMP 36.1; O2SAT 100
[2023-05-02 10:21] VITALS: BP 173/68; PULSE 79; RESP 16; O2SAT 100
[2023-05-02 11:06] LABS: Influenza A QL RT-PCR Negative (Negative); Influenza B QL RT-PCR Negative (Negative); SARS-CoV-2 RNA PCR Positive (Negative)
--- NOTE | 2023-05-02 11:09 | ED.GENADULT ---
HPI - General Adult General Chief complaint: Upper Respiratory Infection Stated complaint: cough, weakness Time Seen by Provider: 05/02/23 10:29 History of Present Illness HPI narrative: Patient is a 72-year-old female who presents ER with cough and weakness. Associated with sinus congestion sore throat. Ongoing for 5 days. No chest pain or chest pressure. No known sick contacts. Reports she has a lot of postnasal drip that causes her to have constant coughing when she is lying down. She is tried Tylenol cold and flu without improvement. Related Data Home Medications Medication Instructions Recorded Confirmed duloxetine 60 mg capsule,delayed 60 mg PO DAILY 03/28/21 12/16/22 release apple cider vinegar 300 mg tablet mg PO 12/02/21 12/16/22 ascorbic acid 100 mg-elderberry tablet PO 12/02/21 12/16/22 fruit 50 mg chewable tablet (Airborne (elderberry)) cholecalciferol (vitamin D3) 25 25 mcg PO DAILY 12/02/21 12/16/22 mcg (1,000 unit) capsule mecobalamin (vitamin B12) 1,000 1,000 mcg PO DAILY 12/02/21 12/16/22 mcg chewable tablet Allergies Allergy/AdvReac Type Severity Reaction Status Date / Time tetracycline Allergy Mild UNKNOWN Verified 05/02/23 10:21 hydrocodone AdvReac Mild INCREASED Verified 05/02/23 10:21 HEART RATE metronidazole AdvReac Mild NAUSEA/VOMI Verified 05/02/23 10:50 TING propoxyphene AdvReac Mild INCREASED Verified 05/02/23 10:50 HR Review of Systems Constitutional: Constitutional: Reports fatigue, Denies fever(s) and Reports weakness ENT: Denies dizziness, Reports nasal congestion and Reports sore throat Cardiovascular: Cardiovascular: Denies chest pain, Denies rapid heart rate and Denies radiating jaw, neck or arm pain Respiratory: Respiratory: Reports cough, Denies dyspnea and Denies wheezing [facility] Past Medical History Medical History (Updated 05/02/23 @ 11:12 by Amarjit Alvarenga MD) Anemia Essential (primary) hypertension Gastro-esophageal reflux disease without esophagitis History of mitral valve prolapse Hyperglycemia Hyperlipidemia Lumbar stenosis Lumbar stenosis with neurogenic claudication Surgical History Surgical History History of cholecystectomy Family History Family History Sibling Family history of diabetes mellitus in first degree relative, Onset Age: 20 Patient's brother is Family history of lung cancer Mother Patient's mother is Father Patient's father is Social History Social History Smoking status: Never smoker Second hand tobacco smoke exposure: No Alcohol intake: never Substance use: never Lack of Transportation: No Lack of Food: Never True Current Housing: I Have Housing Concerned About Future Housing: No Difficulty Paying Gas/Electric Bills: No Difficulty Paying for Meds: No Currently Unemployed: No Education: Associate Degree Difficulty w/ Childcare or Family Care: No Gender identity (if verbalized by the patient): Female Exam Narrative: GENERAL: Well-appearing, well-nourished, and in no acute distress. HEAD: Normocephalic, atraumatic. EYES: PERRL and EOMI. ENT: Mucous membranes moist. Tonsillar stones noted bilaterally without hypertrophy or exudate. Uvula midline and nonedematous. NECK: Supple. CHEST: Clear to auscultation. No respiratory distress. HEART: Regular rate and rhythm. Normal peripheral pulses. EXTREMITIES: Normal range of motion. No edema. NEURO: Alert and oriented x3. PSYCH: Normal mood and affect. Course Course Emergency Course: Patient resting comfortably. Informed of results. Discussed supportive care for COVID-19. Vital Signs Vital signs: Vital Signs Temperature 97.0 F L 05/02/23 08:30 Pulse Rate 98 05/02/23 08:30 R
[2023-05-02] MEDS: LIDOCAINE HCL 2% VISC SOLN 15 ML UDC PO (11:21)
[2023-05-02 11:25] LABS: Strep Group A RT-PCR NOT DETECTED (Negative)
[2023-05-02 11:32] VITALS: BP 170/78; PULSE 79; RESP 18; O2SAT 98
== END 2023-05-02 11:34 | disposition home or self-care (01) ==
PROVIDERS: Emergency Provider Emergency Medicine; PCP Internal Medicine
DX: U07.1 COVID-19 (principal); E78.5 Hyperlipidemia, unspecified; I10 Essential (primary) hypertension
CPT/HCPCS: 87636; 87651; 99283

== ENCOUNTER 2023-06-12 12:11 | Emergency (ER) | payer MEDICARE, SELFPAY ==
--- NOTE | ~2023-06-12 | XR_ITS ---
XR foot RT min 3V DATE: 06/12/2023 13:12 INDICATION: Pain in metatarsal phalangeal joint area for one week TECHNIQUE: 4 views COMPARISON: None FINDINGS: Mild osteoarthritis at the first metatarsophalangeal joint. Mild plantar and prominent posterior calcaneal enthesopathy. No fracture or dislocation, periosteal reaction or bone destruction. There is diffuse osteopenia. IMPRESSION: Mild osteoarthritis at first metatarsophalangeal joint Calcaneal enthesopathy Reviewed, dictated and finalized at location B.
[2023-06-12 12:22] VITALS: BP 135/83; PULSE 80; RESP 16; TEMP 37; O2SAT 99
[2023-06-12 12:24] VITALS: BP 135/83; PULSE 80; RESP 16; TEMP 37; O2SAT 99
--- NOTE | 2023-06-12 13:36 | ED.EXTPRO ---
HPI - Extremity Problem General Chief complaint: Extremity Injury, Lower Stated complaint: right foot pain Time Seen by Provider: 06/12/23 13:18 Source: patient, family (Daughter) and RN notes reviewed Mode of arrival: ambulatory Limitations: no limitations History of Present Illness HPI Narrative: Patient presents today complaining of a one-week history of right foot pain. States she believes she stepped down wrong outside well working at her home. Reports she did have pain until the next day. Denies numbness or tingling. Currently rates her pain 04/02 and has been taking ibuprofen with some relief. Related Data Home Medications Medication Instructions Recorded Confirmed duloxetine 60 mg capsule,delayed 60 mg PO DAILY 03/28/21 06/12/23 release apple cider vinegar 300 mg tablet 300 mg PO DAILY 12/02/21 06/12/23 ascorbic acid 100 mg-elderberry 1 tablet PO DAILY 12/02/21 06/12/23 fruit 50 mg chewable tablet (Airborne (elderberry)) cholecalciferol (vitamin D3) 25 25 mcg PO DAILY 12/02/21 06/12/23 mcg (1,000 unit) capsule mecobalamin (vitamin B12) 1,000 1,000 mcg PO DAILY 12/02/21 06/12/23 mcg chewable tablet Allergies Allergy/AdvReac Type Severity Reaction Status Date / Time tetracycline Allergy Mild UNKNOWN Verified 06/12/23 12:22 hydrocodone AdvReac Mild INCREASED Verified 06/12/23 12:22 HEART RATE metronidazole AdvReac Mild NAUSEA/VOMI Verified 06/12/23 12:22 TING propoxyphene AdvReac Mild INCREASED Verified 06/12/23 12:22 HR Review of Systems Review of Systems: CONSTITUTIONAL: Denies body aches, fever, chills, or sweats. EYES: Denies visual changes, redness, or discharge. ENT: Denies rhinorrhea, congestion, sore throat, or otalgia. CARDIOVASCULAR: Denies chest pain, palpitations, or edema. RESPIRATORY: Denies cough or dyspnea. GASTROINTESTINAL: Denies abdominal pain, nausea, vomiting, or diarrhea. GENITOURINARY: Denies dysuria or hematuria. SKIN: Denies rash, itching, or wounds. MUSCULOSKELETAL: Denies back pain. + right foot pain and swelling NEUROLOGIC: Denies headache, numbness, tingling, or weakness. PSYCH: Denies depression or anxiety. [facility] Past Medical History Medical History Anemia Essential (primary) hypertension Gastro-esophageal reflux disease without esophagitis History of mitral valve prolapse Hyperglycemia Hyperlipidemia Lumbar stenosis Lumbar stenosis with neurogenic claudication Surgical History Surgical History History of cholecystectomy Family History Family History Sibling Family history of diabetes mellitus in first degree relative, Onset Age: 20 Patient's brother is Family history of lung cancer Mother Patient's mother is Father Patient's father is Social History Social History Smoking status: Never smoker Second hand tobacco smoke exposure: No Alcohol intake: never Substance use: never Lack of Transportation: No Lack of Food: Never True Current Housing: I Have Housing Concerned About Future Housing: No Difficulty Paying Gas/Electric Bills: No Difficulty Paying for Meds: No Currently Unemployed: No Education: Associate Degree Difficulty w/ Childcare or Family Care: No Gender identity (if verbalized by the patient): Female Comments At time of signature, I have reviewed and agree with nursing past medical, surgical, social and family history unless otherwise noted. Please see nursing chart for further information. There is no relevant family history pertinent to the presenting complaint Exam Narrative: GENERAL: Well-appearing, well-nourished, and in no acute distress. HEAD: Normocephalic, atraumatic.
== END 2023-06-12 13:51 | disposition home or self-care (01) ==
PROVIDERS: Emergency Provider Nurse Practitioner; PCP Internal Medicine
DX: M10.9 Gout, unspecified (principal); I10 Essential (primary) hypertension; K21.9 Gastro-esophageal reflux disease without esophagitis; E78.5 Hyperlipidemia, unspecified; M48.062 Spinal stenosis, lumbar region with neurogenic claudication; I34.1 Nonrheumatic mitral (valve) prolapse
CPT/HCPCS: 73630; 99213; G0463

== ENCOUNTER 2023-08-07 11:53 | Outpatient (CLI) | payer MEDICARE, SELFPAY ==
[2023-08-07 12:55] LABS: Appearance Urine Turbid (Clear); Bacteria Urine 4+ /hpf; Bilirubin Urine Negative (Negative); Blood Urine 3+ (Negative); Budding Yeast Urine Present /hpf; Color Urine Yellow (Yellow); Glucose Urine UA Negative (Negative); Ketones Urine Negative (Negative); Leukocyte Esterase Ur 3+ LEU/UL (NEGATIVE); Need Manual Microscopic Reviewed; Nitrate Urine Negative (Negative); Non Pathogenic Casts 0-2; Protein Urine 2+ mg/dL (Negative); RBC Urine 51-100 /hpf (0-2); Specific Grav Ur 1.018 (1.001-1.035); Squamous Epithelial Cell Urine Moderate /hpf (Few); WBC Clumps Urine Present /HPF; WBC Urine >100 /hpf (0-3); pH Urine 5.5 (5.0-9.0)
[2023-08-07 13:03] LABS: Add Urine Microscopic? YES
== END 2023-08-07 11:54 | disposition home or self-care (01) ==
LOC: ANHLAB 11:56
PROVIDERS: PCP Internal Medicine; Visit Provider Physician Assistant
DX: R30.0 Dysuria (principal)
CPT/HCPCS: 81001; 87077; 87086; 87186

== ENCOUNTER 2023-08-26 09:54 | Outpatient (CLI) | payer MEDICARE, SELFPAY ==
[2023-08-26 10:07] LABS: Basophils Absolute Auto 0.1 K/mm3 (0.0-0.1); Basophils Percent Auto 0.8 % (0.2-1.2); Eosinophils Absolute Auto 0.3 K/mm3 (0-0.3); Eosinophils Percent Auto 5.6 % (0-4.4); Immature Granulocyte Absolute 0.01 K/mm3 (0.00-0.031); Immature Granulocyte Percent A 0.2 % (0-0.5); Lymphocytes Absolute Auto 2.22 K/mm3 (0.9-3.2); Lymphocytes Percent Auto 36.8 % (18.3-44.2); Mean Corpuscular HGB Conc 32.4 g/dl (32-36); Mean Corpuscular Hemoglobin 32.4 pg (26-34); Mean Platelet Volume 10.9 fl (7.4-10.4); Monocytes Absolute Auto 0.4 K/mm3 (0.1-0.6); Monocytes Percent Auto 6.3 % (2.6-8.5); Neutrophils Percent Auto 50.3 % (45.5-73.1); Platelet Count Result 307 k/mm3 (150-375); Red Cell Distribution Width 12.5 % (11.5-14.5)
[2023-08-26 10:29] LABS: Alanine Aminotransferase 30 U/L (6-35); Albumin Level 4.3 g/dL (3.5-5.1); Alkaline Phosphatase 128 U/L (38-126); Anion Gap 11 mmol/L (8-16); Aspartate Amino Transferase 27 U/L (14-36); Bilirubin,Total 0.4 mg/dL (0.2-1.3); Blood Urea Nitrogen 18 mg/dL (7-17); Calcium 9.6 mg/dL (8.4-10.2); Carbon Dioxide 27 mmol/L (22-30); Chloride 103 mmol/L (98-107); Cholesterol 281 mg/dL (0-200); Estimated Glomerular Filt Rate 37; Glucose 126 mg/dL (65-110); HDL Direct 37 mg/dL; Sodium 141 mmol/L (137-145); Triglycerides 147 mg/dL (<150); Uric Acid 7.1 mg/dL (2.5-7.5)
[2023-08-26 10:40] LABS: LDL Cholesterol Direct 184 mg/dL
[2023-08-26 10:56] LABS: Iron 84 ug/dL (37-170)
[2023-08-26 11:05] LABS: Percent Iron Saturation 34 % (20-50)
[2023-08-26 11:14] LABS: Free T4 Free Thyroxine 0.82 ng/mL (0.78-2.19)
[2023-08-26 11:29] LABS: Appearance Urine Cloudy (Clear); Bacteria Urine 3+ /hpf; Bilirubin Urine Negative (Negative); Blood Urine Negative (Negative); Color Urine Yellow (Yellow); Glucose Urine UA Negative (Negative); Ketones Urine Negative (Negative); Leukocyte Esterase Ur 1+ LEU/UL (NEGATIVE); Mucus Urine Present /lpf; Need Manual Microscopic Reviewed; Nitrate Urine Negative (Negative); Protein Urine Negative (Negative); Specific Grav Ur 1.017 (1.001-1.035); Squamous Epithelial Cell Urine Many /hpf (Few); pH Urine 5.5 (5.0-9.0)
[2023-08-26 11:31] LABS: Add Urine Microscopic? YES
== END 2023-08-26 09:55 | disposition home or self-care (01) ==
PROVIDERS: Physician Assistant; PCP Internal Medicine; Visit Provider Internal Medicine
DX: E78.5 Hyperlipidemia, unspecified (principal); D64.9 Anemia, unspecified; M10.9 Gout, unspecified; R30.0 Dysuria; R79.89 Other specified abnormal findings of blood chemistry
CPT/HCPCS: 36415; 80053; 80061; 81001; 83540; 83550; 84439; 84443; 84550; 85025; 87086; 87088

== ENCOUNTER 2024-01-27 14:05 | Outpatient (CLI) | payer MEDICARE, SELFPAY ==
--- NOTE | ~2024-01-27 | MM_ITS ---
EXAMINATION: MM screening nikunj BI w julia HISTORY: Screening TECHNIQUE: Craniocaudal and mediolateral oblique 3-D tomosynthesis images were obtained and synthetic 2-D images were generated. CAD analysis was submitted and interpreted. COMPARISON: Comparison to multiple prior studies sequentially, with oldest reviewed study dated 01/2017. BREAST PARENCHYMAL COMPOSITION: Not dense: There are scattered areas of fibroglandular density. FINDINGS: There is no evidence of suspicious mass, calcification, or architectural distortion to sugg est malignancy in either breast. There has been no suspicious interval change. IMPRESSION: 1. No mammographic evidence of malignancy. 2. Recommend routine screening mammography in one year. BI-RADS Category 1: Negative Reviewed, dictated and finalized at location B.
== END 2024-01-27 14:06 | disposition home or self-care (01) ==
LOC: ANHIMG 14:07
PROVIDERS: PCP Physician Assistant; Visit Provider Nurse Practitioner Obstetrics & Gynecology
DX: Z12.31 Encounter for screening mammogram for malignant neoplasm of breast (principal)
CPT/HCPCS: 77063; 77067

== ENCOUNTER 2024-03-10 07:59 | Outpatient (CLI) | payer MEDICARE, SELFPAY ==
[2024-03-10 08:58] LABS: Alanine Aminotransferase 17 U/L (6-35); Albumin Level 4.5 g/dL (3.5-5.1); Alkaline Phosphatase 110 U/L (38-126); Anion Gap 10 mmol/L (4-12); Aspartate Amino Transferase 24 U/L (14-36); Bilirubin,Total 0.4 mg/dL (0.2-1.3); Blood Urea Nitrogen 18 mg/dL (7-17); Calcium 9.3 mg/dL (8.4-10.2); Carbon Dioxide 25 mmol/L (22-30); Chloride 105 mmol/L (98-107); Cholesterol 248 mg/dL (0-200); Estimated Glomerular Filt Rate 40; Glucose 123 mg/dL (65-110); HDL Direct 31 mg/dL; Sodium 140 mmol/L (137-145); Triglycerides 276 mg/dL (<150); Uric Acid 5.5 mg/dL (2.5-7.5)
[2024-03-10 09:09] LABS: LDL Cholesterol Direct 157 mg/dL
[2024-03-10 10:02] LABS: Free T4 Free Thyroxine 0.65 ng/mL (0.78-2.19)
[2024-03-10 10:17] LABS: Hemoglobin A1C 6.1 % (<5.7)
[2024-03-14 13:03] LABS: Thyroid Peroxidase Antibodies 7 IU/mL (<9)
== END 2024-03-10 08:00 | disposition home or self-care (01) ==
LOC: ANHLAB 08:01
PROVIDERS: PCP Physician Assistant; Visit Provider Physician Assistant
DX: E03.9 Hypothyroidism, unspecified (principal); R73.9 Hyperglycemia, unspecified; M10.9 Gout, unspecified; E66.3 Overweight
CPT/HCPCS: 36415; 80053; 80061; 83036; 84439; 84443; 84550; 86376

== ENCOUNTER 2024-07-17 10:17 | Emergency (ER) | payer MEDICARE, SELFPAY ==
[2024-07-17 10:19] VITALS: BP 167/89; PULSE 99; RESP 14; TEMP 36.5
[2024-07-17 10:34] LABS: Basophils Absolute Auto 0.1 K/mm3 (0.0-0.1); Basophils Percent Auto 1.1 % (0.2-1.2); Eosinophils Absolute Auto 0.4 K/mm3 (0-0.3); Eosinophils Percent Auto 4.9 % (0-4.4); Hematocrit 39.4 % (37.0-47.0); Hemoglobin 13.3 g/dL (12.0-15.0); Immature Granulocyte Absolute 0.01 K/mm3 (0.00-0.031); Immature Granulocyte Percent A 0.1 % (0-0.5); Lymphocytes Absolute Auto 3.22 K/mm3 (0.9-3.2); Lymphocytes Percent Auto 37.8 % (18.3-44.2); Mean Corpuscular HGB Conc 33.8 g/dl (32-36); Mean Corpuscular Hemoglobin 34.3 pg (26-34); Mean Corpuscular Volume 101.5 fl (80-100); Mean Platelet Volume 10.6 fl (7.4-10.4); Monocytes Absolute Auto 0.5 K/mm3 (0.1-0.6); Neutrophils Absolute Auto 4.3 K/mm3 (1.3-6.7); Neutrophils Percent Auto 50.1 % (45.5-73.1); Platelet Count Result 287 k/mm3 (150-375); Red Blood Count 3.88 M/mm3 (4.2-5.4); Red Cell Distribution Width 13.3 % (11.5-14.5); White Blood Count 8.5 K/mm3 (4.5-10.0)
[2024-07-17 10:48] LABS: Alanine Aminotransferase 19 U/L (6-35); Albumin Level 4.7 g/dL (3.5-5.1); Alkaline Phosphatase 92 U/L (38-126); Anion Gap 11 mmol/L (4-12); Aspartate Amino Transferase 33 U/L (14-36); Bilirubin,Total 0.8 mg/dL (0.2-1.3); Blood Urea Nitrogen 19 mg/dL (7-17); Calcium 9.7 mg/dL (8.4-10.2); Carbon Dioxide 27 mmol/L (22-30); Chloride 103 mmol/L (98-107); Estimated CRCL calculation 37 ml/min; Estimated Glomerular Filt Rate 40; Glucose 128 mg/dL (65-110); Lipase 59 U/L (23-300); Sodium 141 mmol/L (137-145)
[2024-07-17 11:58] LABS: Add Urine Microscopic? YES; Appearance Urine Cloudy (Clear); Bacteria Urine Rare /hpf; Bilirubin Urine Negative (Negative); Blood Urine Negative (Negative); Color Urine Yellow (Yellow); Glucose Urine UA Negative (Negative); Ketones Urine Negative (Negative); Leukocyte Esterase Ur 3+ LEU/UL (Negative); Nitrate Urine Negative (Negative); Non Pathogenic Casts 0-2; Protein Urine Negative (Negative); RBC Urine 0-2 /hpf (0-2); Specific Grav Ur 1.012 (1.001-1.035); Squamous Epithelial Cell Urine Moderate /hpf (Few); WBC Urine 51-100 /hpf (0-3); pH Urine 5.5 (5.0-9.0)
--- NOTE | 2024-07-17 12:14 | ED_ITS ---
HPI - General Adult General Chief complaint: Abdominal Pain Stated complaint: abd pain, diarrhea Time Seen by Provider: 07/17/24 10:46 History of Present Illness HPI narrative: Patient is a 73-year-old female who presents ER with crampy abdominal pain and diarrhea. Ongoing for 2 weeks intermittently. Has not had a bowel movement since yesterday. No fevers or chills or sweats. No chest pain or chest pressure. Minimal improvement when she takes Imodium. Related Data Home Medications Medication Instructions Recorded Confirmed apple cider vinegar 300 mg tablet 300 mg PO DAILY 12/02/21 03/14/24 ascorbic acid 100 mg-elderberry 1 tablet PO DAILY 12/02/21 03/14/24 fruit 50 mg chewable tablet (Airborne (elderberry)) cholecalciferol (vitamin D3) 25 25 mcg PO DAILY 12/02/21 03/14/24 mcg (1,000 unit) capsule mecobalamin (vitamin B12) 1,000 1,000 mcg PO DAILY 12/02/21 03/14/24 mcg chewable tablet duloxetine 60 mg capsule,delayed 60 mg PO DAILY 03/14/24 03/14/24 release Allergies Allergy/AdvReac Type Severity Reaction Status Date / Time tetracycline Allergy Mild UNKNOWN Verified 07/17/24 10:18 Sulfa (Sulfonamide AdvReac Intermediate Nausea Verified 07/17/24 10:18 Antibiotics) hydrocodone AdvReac Mild INCREASED Verified 07/17/24 10:18 HEART RATE metronidazole AdvReac Mild NAUSEA/VOMI Verified 07/17/24 10:18 TING propoxyphene AdvReac Mild INCREASED Verified 07/17/24 10:18 HR Review of Systems Review of Systems: All systems reviewed & are unremarkable except as noted in HPI and below Constitutional: Constitutional: Reports no additional constitutional complaints ENT: Reports system reviewed and no additional complaints, except as documented Cardiovascular: Cardiovascular: Reports no additional cardiovascular complaints Respiratory: Respiratory: Reports no additional respiratory complaints Gastrointestinal: Gastrointestinal: Reports abdominal pain, Reports bloating, Reports diarrhea, Denies nausea and Denies vomiting PMFSH Past Medical History Medical History Anemia Essential (primary) hypertension Gastro-esophageal reflux disease without esophagitis History of mitral valve prolapse Hyperglycemia Hyperlipidemia Lumbar stenosis Lumbar stenosis with neurogenic claudication Surgical History Surgical History History of cholecystectomy Family History Family History Sibling Family history of diabetes mellitus in first degree relative, Onset Age: 20 Patient's brother is Family history of lung cancer Mother Patient's mother is Father Patient's father is Social History Social History Smoking status: Never smoker Second hand tobacco smoke exposure: No Alcohol intake: never Substance use: never Lack of Transportation: No Lack of Food: Never True Current Housing: I Have Housing Concerned About Future Housing: No Difficulty Paying Gas/Electric Bills: No Difficulty Paying for Meds: No Currently Unemployed: No Education: Associate Degree Difficulty w/ Childcare or Family Care: No Gender identity (if verbalized by the patient): Female Exam Narrative: GENERAL: Well-appearing, well-nourished, and in no acute distress. HEAD: Normocephalic, atraumatic. ENT: Mucous membranes moist. CHEST: Clear to auscultation. No respiratory distress. HEART: Regular rate and rhythm. Normal peripheral pulses. ABDOMEN: Soft, nontender, nondistended. EXTREMITIES: Normal range of motion. No edema. SKIN: Warm, dry, no rash. NEURO: Alert and oriented x3. PSYCH: Normal mood and affect. Course Course Emergency Course: Patient resting comfortably. Informed of results. Will place on oral antibiotic for UTI. Dc home. Vital Signs Vital signs: Vital Signs Temperature 97.7 F 07/17/24 10:19 Pulse Rate 99 07/17/24 10:19 Respiratory Rate 14 07/17/24 10:19 Blood Pressure 167/89 H 07/17/24 10:19 Temperature 97.7 F 07/17/24 10:19 Pulse Rate 99 07/17/24 10:19 Respiratory Rate 14 07/17/24 10:19 Blood Pressure 167/89 H 07/17/24 10:19 Medical Decision Making Vital Signs Vital Signs: Vital Signs Temperature 97.7 F 07/17/24 10:19 Pulse Rate 99 07/17/24 10:19 Respiratory Rate 14 07/17/24 10:19 Blood Pressure 167/89 H 07/17/24 10:19 Temperature 97.7 F 07/17/24 10:19 Pulse Rate 99 07/17/24 10:19 Respiratory Rate 14 07/17/24 10:19 Blood Pressure 167/89 H 07/17/24 10:19 Lab Data 07/17/24 10:29 07/17/24 10:29 Labs: Lab Results 07/17/24 07/17/24 Range/Units 10:29 11:49 WBC 8.5 (4.5-10.0) K/mm3 RBC 3.88 L (4.2-5.4) M/mm3 Hgb 13.3 (12.0-15.0) g/dL Hct 39.4 (37.0-47.0) % MCV 101.5 H (80-100) fl MCH 34.3 H (26-34) pg MCHC 33.8 (32-36) g/dl RDW 13.3 (11.5-14.5) % Plt Count 287 (150-375) k/mm3 MPV 10.6 H (7.4-10.4) fl Immature Gran % (Auto) 0.1 (0-0.5) % Neut % (Auto) 50.1 (45.5-73.1) % Lymph % (Auto) 37.8 (18.3-44.2) % [place] % (Auto) 6.0 (2.6-8.5) % Eos % (Auto) 4.9 H (0-4.4) % Baso % (Auto) 1.1 (0.2-1.2) % Lymph # (Auto) 3.22 H (0.9-3.2) K/mm3 [place] # (Auto) 0.5 (0.1-0.6) K/mm3 Eos # (Auto) 0.4 H (0-0.3) K/mm3 Baso # (Auto) 0.1 (0.0-0.1) K/mm3 Abs Immat Gran (auto) 0.01 (0.00-0.031) K/mm3 Absolute Neuts (auto) 4.3 (1.3-6.7) K/mm3 Absolute Nucleated RBC 0.000 (0.0-0.012) K/mm3 Nucleated RBC % 0.0 (0.0-0.2) % Sodium 141 (137-145) mmol/L Potassium 4.0 (3.4-5.0) mmol/L Chloride 103 (98-107) mmol/L Carbon Dioxide 27 (22-30) mmol/L Anion Gap 11 (4-12) mmol/L BUN 19 H (7-17) mg/dL Creatinine 1.30 H (0.7-1.0) mg/dL Estim Creat Clear Calc 37 ml/min Estimated GFR 40 L (59 - ) Glucose 128 H (65-110) mg/dL Calcium 9.7 (8.4-10.2) mg/dL Total Bilirubin 0.8 (0.2-1.3) mg/dL AST 33 (14-36) U/L ALT 19 (6-35) U/L Alkaline Phosphatase 92 (38-126) U/L Total Protein 9.0 H (6.3-8.2) g/dL Albumin 4.7 (3.5-5.1) g/dL Lipase 59 (23-300) U/L Urine Color Yellow (Yellow) Urine Appearance Cloudy H (Clear) Urine pH 5.5 (5.0-9.0) Ur Specific [place] 1.012 (1.001-1.035) Urine Protein Negative (Negative) mg/dL Urine Glucose (UA) Negative (Negative) mg/dL Urine Ketones Negative (Negative) mg/dL Ur Blood (Man) Negative (Negative) Urine Nitrate Negative (Negative) Urine Bilirubin Negative (Negative) Urine Urobilinogen 1.0 (<2.0) mg/dL Leukocyte Esterase Rfl 3+ H (Negative) SHANNON/UL Urine RBC 0-2 (0-2) /hpf Urine WBC 51-100 H (0-3) /hpf Ur Squamous Epith Cells Moderate (Few) /hpf Urine Bacteria Rare /hpf Urine Casts 0-2 Discharge Plan Discharge Clinical Impression: Acute UTI Patient Disposition: Home, Self-Care Condition: Stable Instructions: Urinary Tract Infection in Women (ED) Additional Instructions: You should return to the emergency department if you develop severe nausea and vomiting and are unable to keep liquids down, if you develop severe back/flank or stomach pain, or if your symptoms are not clearly improving at home. Prescriptions: No Action duloxetine 60 mg capsule,delayed release(DR/EC) 60 mg PO DAILY Rx Instructions: pt takes twice a week ascorbic acid-elderberry fruit [Airborne (elderberry)] 100-50 mg tablet,chewable 1 tablet PO DAILY apple cider vinegar 300 mg tablet 300 mg PO DAILY cholecalciferol (vitamin D3) 25 mcg (1,000 unit) capsule 25 mcg PO DAILY mecobalamin (vitamin B12) 1,000 mcg tablet,chewable 1,000 mcg PO DAILY levothyroxine 25 mcg tablet 25 mcg PO DAILY Qty: 90 2RF ibuprofen 600 mg tablet 600 mg PO TID Qty: 20 0RF cyclobenzaprine 10 mg tablet 10 mg PO TID PRN (Reason: muscle spasm) Qty: 20 0RF colchicine 0.6 mg tablet 0.6 mg PO ONCE Qty: 1 0RF indomethacin 50 mg capsule 50 mg PO TID Qty: 30 0RF Rx Instructions: administer with food or milk allopurinol 300 mg tablet 300 mg PO DAILY Qty: 90 3RF pantoprazole 40 mg tablet,delayed release (DR/EC) 40 mg PO QAM Qty: 100 3RF carvedilol 25 mg tablet 25 mg PO BID Qty: 180 3RF lisinopril 40 mg tablet See Rx Instructions .ROUTE .COMPLEX Qty: 100 2RF Dose Instruction: TAKE 1 TABLET BY MOUTH DAILY Rx Instructions: TAKE 1 TABLET BY MOUTH DAILY Follow-up/Referrals: Armando Fernandes DO [Primary Care Provider] - 1 Week
[2024-07-17 12:34] VITALS: BP 146/76; PULSE 74; RESP 20; O2SAT 96
== END 2024-07-17 12:35 | disposition home or self-care (01) ==
PROVIDERS: Emergency Provider Emergency Medicine; PCP Internal Medicine
DX: N39.0 Urinary tract infection, site not specified (principal); I10 Essential (primary) hypertension; E78.5 Hyperlipidemia, unspecified; K21.9 Gastro-esophageal reflux disease without esophagitis; Z86.2 Personal history of diseases of the blood and blood-forming organs and certain disorders involving the immune mechanism; Z90.49 Acquired absence of other specified parts of digestive tract; Z79.899 Other long term (current) drug therapy
CPT/HCPCS: 36415; 80053; 81001; 83690; 85025; 87086; 99283

== ENCOUNTER 2024-07-27 14:02 | Outpatient (CLI) | payer MEDICARE, SELFPAY ==
[2024-07-27 15:43] LABS: Appearance Urine Clear (Clear); Color Urine Yellow (Yellow); Glucose Urine UA Negative (Negative)
[2024-07-27 15:44] LABS: Bilirubin Urine Negative (Negative); Blood Urine Negative (Negative); Ketones Urine Negative (Negative); Nitrate Urine Negative (Negative); Protein Urine Negative (Negative); Specific Grav Ur 1.015 (1.001-1.035); Urobilinogen Urine 0.2 mg/dL (<2.0)
[2024-07-27 15:45] LABS: Add Urine Microscopic? NO; Leukocyte Esterase Ur 1+ LEU/UL (Negative)
== END 2024-07-27 14:03 | disposition home or self-care (01) ==
LOC: ANHLAB 14:03
PROVIDERS: PCP Internal Medicine; Visit Provider Internal Medicine
DX: N39.0 Urinary tract infection, site not specified (principal)
CPT/HCPCS: 81001; 81003; 87077; 87086; 87186

== ENCOUNTER 2024-08-11 22:17 | Emergency (ER) | payer MEDICARE, SELFPAY ==
--- NOTE | ~2024-08-11 | CT_ITS ---
CT of the Abdomen and Pelvis: Indication: Abdominal pain Technique: 2.5 mm axial scans were obtained through the abdomen and pelvis following intravenous adm inistration of 100 cc of Omnipaque 350. Dose reduction technique was used on this scan by utilizing a utomated exposure control and iterative reconstruction technique. The dose-length product (DLP) was 6 85.20 mGy-cm. Findings: Scans through the lung bases are unremarkable. The liver, spleen, pancreas, adrenals and kidneys are within normal limits. Cholecystectomy clips are present. There are atherosclerotic calcifications of the aorta. No lymphadenopathy. No bowel obstruction or bowel wall thickening. There is no evidence to suggest acute appendicitis. Images through the pelvis were performed. Urinary bladder unremarkable. No pelvic mass. No ascites. Impression: No significant abnormalities seen. Reviewed, dictated and finalized at [facility]. GEMASTER Impression: No significant abnormalities seen.
--- NOTE | ~2024-08-11 | XR_ITS ---
EXAMINATION: XR chest 1V portable DATE: 08/11/2024 22:28 INDICATION: Chest pain. TECHNIQUE: A single frontal view of the chest was obtained. COMPARISON: Chest 2 views 12/09/2022 FINDINGS: There is no pneumonia, pleural effusion, or pneumothorax. The heart size is normal. IMPRESSION: 1. No acute cardiopulmonary disease. Reviewed, dictated and finalized at location A. R THREAT ANALYST
[2024-08-11 22:15] VITALS: BP 170/88; PULSE 80; RESP 18; TEMP 36.4; O2SAT 100
--- NOTE | 2024-08-11 22:16 | ECG_ITS ---
Test Date: 2024-08-11 22:16:23 Measurements Intervals [place] Rate: 79 P: 84 CO: 157 QRS: -2 QRSD: 90 T: 37 QT: 406 QTc: 467 Interpretive Statements SINUS RHYTHM WITH PVC MODERATE ST DEPRESSION [0.05+ mV ST DEPRESSION] No previous ECG available for comparison Electronically Signed On 08-12-2024 12:11:32 ICE PULLER by Raj Tipton M.D.
[2024-08-11 22:20] VITALS: O2SAT 100
[2024-08-11 22:26] VITALS: PULSE 74
[2024-08-11 22:45] LABS: Basophils Percent Auto 0.4 % (0.2-1.2); Eosinophils Absolute Auto 0.2 K/mm3 (0-0.3); Eosinophils Percent Auto 2.5 % (0-4.4); Hematocrit 35.9 % (37.0-47.0); Hemoglobin 12.4 g/dL (12.0-15.0); Immature Granulocyte Absolute 0.02 K/mm3 (0.00-0.031); Immature Granulocyte Percent A 0.2 % (0-0.5); Lymphocytes Absolute Auto 2.24 K/mm3 (0.9-3.2); Lymphocytes Percent Auto 24.6 % (18.3-44.2); Mean Corpuscular HGB Conc 34.5 g/dl (32-36); Mean Corpuscular Hemoglobin 33.8 pg (26-34); Mean Corpuscular Volume 97.8 fl (80-100); Mean Platelet Volume 10.7 fl (7.4-10.4); Monocytes Absolute Auto 0.5 K/mm3 (0.1-0.6); Monocytes Percent Auto 5.2 % (2.6-8.5); Neutrophils Absolute Auto 6.1 K/mm3 (1.3-6.7); Neutrophils Percent Auto 67.1 % (45.5-73.1); Platelet Count Result 263 k/mm3 (150-375); Red Blood Count 3.67 M/mm3 (4.2-5.4); Red Cell Distribution Width 13.2 % (11.5-14.5); White Blood Count 9.1 K/mm3 (4.5-10.0)
[2024-08-11 22:56] LABS: Prothrombin Time 13.4 Seconds (11.1-14.7)
[2024-08-11 22:57] LABS: Alanine Aminotransferase 17 U/L (6-35); Albumin Level 4.4 g/dL (3.5-5.1); Alkaline Phosphatase 110 U/L (38-126); Anion Gap 8 mmol/L (4-12); Aspartate Amino Transferase 25 U/L (14-36); Bilirubin,Total 0.5 mg/dL (0.2-1.3); Blood Urea Nitrogen 15 mg/dL (7-17); Calcium 9.6 mg/dL (8.4-10.2); Carbon Dioxide 24 mmol/L (22-30); Chloride 107 mmol/L (98-107); Estimated CRCL calculation 45 ml/min; Estimated Glomerular Filt Rate 44; Glucose 142 mg/dL (65-110); Lipase 62 U/L (23-300); Potassium 3.5 mmol/L (3.4-5.0); Sodium 139 mmol/L (137-145)
[2024-08-11 22:58] LABS: Partial Thromboplastin Time 26.7 Seconds (22.3-36.8)
[2024-08-11 23:08] LABS: Troponin I < 0.012 ng/mL (0.000-0.034)
[2024-08-12] MEDS: ONDANSETRON INJ 4 MG/2 ML VIAL IV PUSH (00:44)
[2024-08-12] MEDS: DICYCLOMINE HCL 10 MG CAPSULE 20 MG PO (00:45)
--- NOTE | 2024-08-12 01:28 | ED_ITS ---
HPI - General Adult General Chief complaint: Chest Pain Stated complaint: epigastric pain Time Seen by Provider: 08/11/24 23:15 History of Present Illness HPI narrative: this is a 74-year-old female presenting ED with chief of epigastric discomfort in abdominal pain. 4:00 p.m. while she was watching TV she developed achy pain in the epigastric area that radiated into her stomach. It is 4 out 10 intensity and constant. She has had symptoms like this multiple times over the last 2 weeks. It was associated with nausea and diarrhea. She denies fevers chills chest pain difficulty breathing he or urinary symptoms. Patient recently completed a course of Keflex for UTI. patient told triage she was having chest pain although after speaking with her its more accurately epigastric pain radiating to her abdomen. Patient has recently stopped taking her anxiety medications. she also notes significant stressors at home has for furnaces, she no longer has heat to her house. Related Data Home Medications ?Medication ?Instructions ?Recorded ?Confirmed ?Last Taken ?Type apple cider vinegar 300 mg tablet 300 mg PO DAILY 12/02/21 07/27/24 Unknown History ascorbic acid 100 mg-elderberry 1 tablet PO DAILY 12/02/21 07/27/24 Unknown History fruit 50 mg chewable tablet (Airborne (elderberry)) cholecalciferol (vitamin D3) 25 25 mcg PO DAILY 12/02/21 07/27/24 Unknown History mcg (1,000 unit) capsule mecobalamin (vitamin B12) 1,000 1,000 mcg PO DAILY 12/02/21 07/27/24 Unknown History mcg chewable tablet duloxetine 60 mg capsule,delayed 60 mg PO DAILY 03/14/24 07/27/24 Unknown History release Allergies Allergy/AdvReac Type Severity Reaction Status Date / Time aspirin Allergy Intermediate Abdominal Verified 08/11/24 22:23 Pain tetracycline Allergy Mild UNKNOWN Verified 08/11/24 22:23 Sulfa (Sulfonamide AdvReac Intermediate Nausea Verified 08/11/24 22:23 Antibiotics) hydrocodone AdvReac Mild INCREASED Verified 08/11/24 22:23 HEART RATE metronidazole AdvReac Mild NAUSEA/VOMI Verified 08/11/24 22:23 TING propoxyphene AdvReac Mild INCREASED Verified 08/11/24 22:23 HR PMFSH Past Medical History Medical History Lumbar stenosis with neurogenic claudication Lumbar stenosis History of mitral valve prolapse Anemia Hyperlipidemia Hyperglycemia Essential (primary) hypertension Gastro-esophageal reflux disease without esophagitis Surgical History Surgical History History of cholecystectomy Family History Family History Sibling Family history of diabetes mellitus in first degree relative, Onset Age: 20 Patient's brother is Family history of lung cancer Mother Patient's mother is Father Patient's father is Social History Social History Smoking status: Never smoker Second hand tobacco smoke exposure: No Alcohol intake: never Substance use: never Lack of Transportation: No Lack of Food: Never True Current Housing: I Have Housing Concerned About Future Housing: No Difficulty Paying Gas/Electric Bills: No Difficulty Paying for Meds: No Currently Unemployed: No Education: Associate Degree Difficulty w/ Childcare or Family Care: No Gender identity (if verbalized by the patient): Female Exam 2 Narrative: APPEARANCE: No apparent distress. Head: atraumatic. EYES: EOMI, NOSE: Atraumatic NECK: Trachea midline RESPIRATORY: No increased rate of breathing clear to auscultation CARDIOVASCULAR: RRR, no peripheral edema ABDOMINAL: Non-distended, soft nontender no guarding rebound MUSCULOSKELETAl: No obvious deformities NEURO: Alert. Moving 4/4 extremities SKIN:: Warm, dry. Normal color PSYCHIATRIC: Normal affect Course Vital Signs Vital signs: Vital Signs Temperature 97.6 F 08/11/24 22:15 Pulse Rate 80 08/11/24 22:15 Respiratory Rate 18 08/11/24 22:15 Blood Pressure 170/88 H 08/11/24 22:15 Pulse Oximetry 100 08/11/24 22:15 Oxygen Delivery Room Air 08/11/24 22:15 Temperature 97.6 F 08/11/24 22:15 Pulse Rate 74 08/11/24 22:26 Respiratory Rate 18 08/11/24 22:15 Blood Pressure 170/88 H 08/11/24 22:15 Pulse Oximetry 100 08/11/24 22:20 Oxygen Delivery Room Air 08/11/24 22:20 Medical Decision Making MDM Narrative Medical decision making narrative: -Course: 74-year-old female presenting with crampy abdominal pain and diarrhea for the last several days. Vital signs within expected limits. Abdominal exam benign. CT unremarkable. labs unremarkable. Patient said her pain improved Bentyl. Patient will be discharged to follow-up with her primary care physician. Given prescriptions for Zofran Bentyl. Given return precautions. -DDX includes but is not limited to: Gastroenteritis, diarrheal illness, viral syndrome, irritable bowel syndrome Vital Signs Vital Signs: Vital Signs Temperature 97.6 F 08/11/24 22:15 Pulse Rate 80 08/11/24 22:15 Respiratory Rate 18 08/11/24 22:15 Blood Pressure 170/88 H 08/11/24 22:15 Pulse Oximetry 100 08/11/24 22:15 Oxygen Delivery Room Air 08/11/24 22:15 Temperature 97.6 F 08/11/24 22:15 Pulse Rate 74 08/11/24 22:26 Respiratory Rate 18 08/11/24 22:15 Blood Pressure 170/88 H 08/11/24 22:15 Pulse Oximetry 100 08/11/24 22:20 Oxygen Delivery Room Air 08/11/24 22:20 Lab Data 08/11/24 22:38 08/11/24 22:38 Labs: Lab Results 08/11/24 08/12/24 Range/Units 22:38 01:08 WBC 9.1 (4.5-10.0) K/mm3 RBC 3.67 L (4.2-5.4) M/mm3 Hgb 12.4 (12.0-15.0) g/dL Hct 35.9 L (37.0-47.0) % MCV 97.8 (80-100) fl MCH 33.8 (26-34) pg MCHC 34.5 (32-36) g/dl RDW 13.2 (11.5-14.5) % Plt Count 263 (150-375) k/mm3 MPV 10.7 H (7.4-10.4) fl Immature Gran % (Auto) 0.2 (0-0.5) % Neut % (Auto) 67.1 (45.5-73.1) % Lymph % (Auto) 24.6 (18.3-44.2) % [place] % (Auto) 5.2 (2.6-8.5) % Eos % (Auto) 2.5 (0-4.4) % Baso % (Auto) 0.4 (0.2-1.2) % Lymph # (Auto) 2.24 (0.9-3.2) K/mm3 [place] # (Auto) 0.5 (0.1-0.6) K/mm3 Eos # (Auto) 0.2 (0-0.3) K/mm3 Baso # (Auto) 0.0 (0.0-0.1) K/mm3 Abs Immat Gran (auto) 0.02 (0.00-0.031) K/mm3 Absolute Neuts (auto) 6.1 (1.3-6.7) K/mm3 Absolute Nucleated RBC 0.000 (0.0-0.012) K/mm3 Nucleated RBC % 0.0 (0.0-0.2) % PT 13.4 (11.1-14.7) Seconds INR 1.0 APTT 26.7 (22.3-36.8) Seconds Sodium 139 (137-145) mmol/L Potassium 3.5 (3.4-5.0) mmol/L Chloride 107 (98-107) mmol/L Carbon Dioxide 24 (22-30) mmol/L Anion Gap 8 (4-12) mmol/L BUN 15 (7-17) mg/dL Creatinine 1.20 H (0.7-1.0) mg/dL Estim Creat Clear Calc 45 ml/min Estimated GFR 44 L (59 - ) Glucose 142 H (65-110) mg/dL Calcium 9.6 (8.4-10.2) mg/dL Total Bilirubin 0.5 (0.2-1.3) mg/dL AST 25 (14-36) U/L ALT 17 (6-35) U/L Alkaline Phosphatase 110 (38-126) U/L Troponin I < 0.012 < 0.012 (0.000-0.034) ng/mL Total Protein 8.0 (6.3-8.2) g/dL Albumin 4.4 (3.5-5.1) g/dL Lipase 62 (23-300) U/L Discharge Plan Discharge Clinical Impression: Diarrhea, Abdominal pain Patient Disposition: Home, Self-Care Condition: Stable Instructions: Antibiotic Form, Abdominal Pain (ED) Patient Language: [place] Prescriptions: New ondansetron 4 mg tablet,disintegrating 4 mg PO Q8H PRN (Reason: nausea and vomiting) Qty: 30 0RF dicyclomine 20 mg tablet 20 mg PO BID Qty: 30 0RF No Action duloxetine 60 mg capsule,delayed release(DR/EC) 60 mg PO DAILY Rx Instructions: pt takes twice a week ascorbic acid-elderberry fruit [Airborne (elderberry)] 100-50 mg tablet,chewable 1 tablet PO DAILY apple cider vinegar 300 mg tablet 300 mg PO DAILY cholecalciferol (vitamin D3) 25 mcg (1,000 unit) capsule 25 mcg PO DAILY mecobalamin (vitamin B12) 1,000 mcg tablet,chewable 1,000 mcg PO DAILY levothyroxine 25 mcg tablet 25 mcg PO DAILY Qty: 90 2RF phenazopyridine [Pyridium] 200 mg tablet 200 mg PO TID Qty: 12 0RF Rx Instructions: Take after meals ibuprofen 600 mg tablet 600 mg PO TID Qty: 20 0RF cyclobenzaprine 10 mg tablet 10 mg PO TID PRN (Reason: muscle spasm) Qty: 20 0RF colchicine 0.6 mg tablet 0.6 mg PO ONCE Qty: 1 0RF indomethacin 50 mg capsule 50 mg PO TID Qty: 30 0RF Rx Instructions: administer with food or milk allopurinol 300 mg tablet 300 mg PO DAILY Qty: 90 3RF pantoprazole 40 mg tablet,delayed release (DR/EC) 40 mg PO QAM Qty: 100 3RF carvedilol 25 mg tablet 25 mg PO BID Qty: 180 3RF lisinopril 40 mg tablet See Rx Instructions .ROUTE .COMPLEX Qty: 100 2RF Dose Instruction: TAKE 1 TABLET BY MOUTH DAILY Rx Instructions: TAKE 1 TABLET BY MOUTH DAILY cephalexin 250 mg capsule 250 mg PO Q8H Qty: 21 0RF Follow-up/Referrals: Armando Fernandes DO [Primary Care Provider] -
[2024-08-12 01:40] LABS: Troponin I < 0.012 ng/mL (0.000-0.034)
[2024-08-12 04:30] VITALS: BP 159/79; PULSE 69; RESP 16; O2SAT 98
[2024-08-12 06:29] VITALS: BP 164/75; PULSE 70; RESP 15; O2SAT 97
== END 2024-08-12 06:31 | disposition home or self-care (01) ==
PROVIDERS: Emergency Provider Emergency Medicine; PCP Internal Medicine
DX: R19.7 Diarrhea, unspecified (principal); R10.13 Epigastric pain; D64.9 Anemia, unspecified; E78.5 Hyperlipidemia, unspecified; I10 Essential (primary) hypertension; K21.9 Gastro-esophageal reflux disease without esophagitis
CPT/HCPCS: 36415; 71045; 74177; 80053; 83690; 84484; 85025; 85610; 85730; 93005; 96374; 99284; A9270; J2405; Q9967

== ENCOUNTER 2024-09-08 08:52 | Outpatient (CLI) | payer MEDICARE, SELFPAY ==
[2024-09-08 09:20] LABS: Basophils Percent Auto 0.6 % (0.2-1.2); Eosinophils Absolute Auto 0.3 K/mm3 (0-0.3); Eosinophils Percent Auto 5.1 % (0-4.4); Hematocrit 36.1 % (37.0-47.0); Hemoglobin 12.1 g/dL (12.0-15.0); Immature Granulocyte Absolute 0.02 K/mm3 (0.00-0.031); Immature Granulocyte Percent A 0.3 % (0-0.5); Lymphocytes Absolute Auto 2.33 K/mm3 (0.9-3.2); Lymphocytes Percent Auto 37.1 % (18.3-44.2); Mean Corpuscular HGB Conc 33.5 g/dl (32-36); Mean Corpuscular Hemoglobin 33.5 pg (26-34); Mean Platelet Volume 10.8 fl (7.4-10.4); Monocytes Absolute Auto 0.4 K/mm3 (0.1-0.6); Monocytes Percent Auto 5.7 % (2.6-8.5); Neutrophils Absolute Auto 3.2 K/mm3 (1.3-6.7); Neutrophils Percent Auto 51.2 % (45.5-73.1); Platelet Count Result 238 k/mm3 (150-375); Red Blood Count 3.61 M/mm3 (4.2-5.4); Red Cell Distribution Width 13.7 % (11.5-14.5); White Blood Count 6.3 K/mm3 (4.5-10.0)
[2024-09-08 09:41] LABS: Alanine Aminotransferase 14 U/L (6-35); Albumin Level 3.9 g/dL (3.5-5.1); Alkaline Phosphatase 103 U/L (38-126); Anion Gap 9 mmol/L (4-12); Aspartate Amino Transferase 23 U/L (14-36); Bilirubin,Total 0.4 mg/dL (0.2-1.3); Blood Urea Nitrogen 13 mg/dL (7-17); Carbon Dioxide 28 mmol/L (22-30); Chloride 105 mmol/L (98-107); Cholesterol 260 mg/dL (0-200); Estimated Glomerular Filt Rate 54; Glucose 120 mg/dL (65-110); HDL Direct 31 mg/dL; Potassium 3.4 mmol/L (3.4-5.0); Sodium 142 mmol/L (137-145); Triglycerides 241 mg/dL (<150)
[2024-09-08 09:52] LABS: LDL Cholesterol Direct 170 mg/dL
[2024-09-08 09:55] LABS: Free T4 Free Thyroxine 0.69 ng/dL (0.78-2.19)
[2024-09-08 10:14] LABS: Hemoglobin A1C 5.4 % (<5.7)
--- OUTSIDE RECORDS SUMMARY | 2024-09-15 01:47 | XMS_ITS | Data Portability ---
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 Patient will come back in a year unless there are new symptoms. [email or web address] Not available 11/18/2021 12:53:06 Plan of Treatment Reminders Order Date Submit Date Provider Last Modified By Organization Details Last Modified Time Details Appointments None recorded. Lab None recorded. Referral None recorded. Procedures None recorded. Surgeries None recorded. Imaging None recorded. Medication Orders duloxetine 60 mg capsule,del ayed release 2021 022 [facility], [address] [place] [address], [id number], 13:07:39 Patient TargetsNo targets recorded. Patient InstructionsNo instructions recorded. Reason for Referral None Reported. Problems Name Problem SNOMED Code Status Onset Date Resolution Date Notes Provider Name and Address Organization Details Recorded Time Screenin g for malignan t neoplasm of rectum Completed 201006/14/2012 Screenin g for malignan t neoplasm s of the rectum;R ecorded Elsewher e: No Locat ion: [facility] S ource: EHR Municipal Clerk анна: N Practi ce ID: 0001 Christopher lable Time: 03:00:00 PM Marquita vergara [facility] 12:54:56 Screenin g for malignan t neoplasm of cervix Completed 201006/14/2012 Screenin g for malignan t neoplasm s of the cervix;R ecorded Elsewher e: No Locat ion: [facility] [address] S ource: EHR Municipal Clerk анна: N George ce ID: 0001 Christopher lable Time: 03:00:00 PM Marquita vergara [facility] 2 12:54:49 Speciali zed medical examinat ion Completed 201006/14/2012 Gynecolo gical Examinat ion;Franklyn rded Elsewher e: No Locat ion: [facility] [address] S ource: EHR Municipal Clerk анна: N Maribellti ce ID: 0001 Christopher lable Time: 03:00:00 PM Marquita vergara [facility] 2 12:55:14 Anemia [id number] Completed 201006/14/2012 Anemia;R ecorded Elsewher e: No Locat ion: [facility] [address] S ource: EHR Municipal Clerk анна: N George ce ID: 0001 Christopher lable Time: 03:00:00 PM Not Available [facility] 0 21:52:23 Problem Notes None recorded. Procedures Surgical History Date Name Laterality Status Provider Name and Address Organization Details Recorded Time 11/19/19 Date of Last Pap Smear completed Marquita Almazan [facility] 11/18/2021 12:55:21 08/02/20 20 Date of Last Mammogram completed Marquita Almazan [facility] 12/23/2021 14:11:41 08/24/19 07 Date of Last Colonoscopy completed Marquita Almazan [facility] 12/23/2021 14:18:01 08/24/19 07 Colonoscopy completed Marquitaramona Almazan [facility] 12/23/2021 14:17:50 08/24/19 07 lumpectomy of breast completed Marquitaramona Almazan [facility] 12/23/2021 14:18:26 08/24/19 07 cardiac catheterization completed Marquita Almazan [facility] 12/23/2021 14:18:53 08/24/18 95 cholecystectomy completed Marquita Almazan [facility] 12/23/2021 14:17:40 Imaging Results None recorded. Procedure Notes None recorded. Medical Equipment None Reported. Allergies Allergen ID Allergen Name Allergen Category Reaction Reaction Severity Criticality Documentation Date Start Date Code Code System Note Provider Name and Address Organization Details Recorded Time 55876 acetamino phen medicatio n Not available Not available Not available 08/10/2020 161 RxNorm Comme nt: [facility] C[facility] sativ e Agent : Darvo cet-N 100; Not Available [facility] 0 14:14:54 75596 aspirin medicatio n Not available Not available Not available 08/10/2020 1191 RxNorm Comme nt: [facility]; Not Available [facility] 0 14:14:54 60802 metronida zole medicatio n Not available Not available Not available 08/10/2020 6922 RxNorm Comme nt: [facility]; Not Available [facility] 0 14:14:54 91218 Darvocet- N medicatio n Not available Not available Not available 11/18/2021 [id number] UNK Marquita Almazan [facility], [facility] 2 12:54:08 Medications Name Sig Start Date Stop Date Status Note LastModified by Organization Details LastModified Time carvedilo l 25 mg tablet active Not Available Not Available Not Available carvedilo l 12.5 mg tablet take 1 tablet by oral route 2 times every day with food active Prescrib ed Elsewher e: Yes Loca tion: [facility] [address] M odify By: anthony Napoles ncounter DateTime : 08/04/20 17 08:30:00 AM Not Available Not Available Not Available clindamyc in HCl 300 mg capsule TAKE 1 CAPSULE BY MOUTH TWICE DAILY FOR 7 DAYS 11/18 completed Not Available Not Available Not Available medroxypr ogesteron e 2.5 mg tablet take 2 tablet (5MG) by ORAL route every day 06/14 completed Prescrib ed Elsewher e: No Locat ion: Robert napoles [facility] odify By: bertha Worthingtonou nter DateTime : 03/29/20 11 10:45:24 AM Not Available Not Available Not Available pantopraz ole 20 mg tablet,de layed release take 2 tablet by ORAL route every day 11/18 completed Prescrib ed Elsewher e: Yes Loca tion: Robert napoles [facility] odify By: kaity Pascualte r DateTime : 03/29/20 11 10:45:24 AM Not Available Not Available Not Available Macrobid 100 mg capsule take 1 capsule (100MG) by oral route every 12 hours with food 07/17 completed Prescrib ed Elsewher e: No Locat ion: Robert napoles [facility] odify By: cmedical Encount er DateTime : 07/08/20 13 01:14:49 PM Not Available Not Available Not Available pantopraz ole 40 mg tablet,de layed release active Not Available Not Available Not Available Cipro 500 mg tablet take 1 tablet (500MG) by oral route every 12 hours 07/08 completed Prescrib ed Elsewher e: No Locat ion: Robert napoles [facility] odify By: cmedical Encount er DateTime : 07/08/20 13 01:14:49 PM Not Available Not Available Not Available aspirin 81 mg tablet take 1 tablet by oral route every day 11/18 completed Prescrib ed Elsewher e: Yes Loca tion: Robert napoles [facility] odify By: hemalatha Napoles ncounter DateTime : 04/21/20 11 03:00:00 PM Not Available Not Available Not Available Prempro 0.625 mg-2.5 mg tablet TAKE 1 TABLET BY MOUTH EVERY DAY 07/12 completed Prescrib ed Elsewher e: No [facility] By: david arzate DateTime : 02/22/20 14 02:16:08 PM Not Available Not Available Not Available lisinopri l 40 mg tablet take 1 tablet by oral route every day active Not Available Not Available No t Available lisinopri l 2.5 mg tablet take 1 tablet by ORAL route every day 07/12 completed Prescrib ed Elsewher e: Yes Loca tion: [facility] odify By: david arzate DateTime : 03/29/20 11 10:45:24 AM Not Available Not Available Not Available buspirone 15 mg tablet take 1 tablet by oral route 2 times every day 11/18 completed Prescrib ed Elsewher e: No Locat ion: [facility] odify By: bertha Villalta nter DateTime : 07/22/20 16 08:15:00 AM Not Available Not Available Not Available Vitamins and Minerals tablet active Prescrib ed Elsewher e: Yes Loca tion: [facility] odify By: shahid shore DateTime : 07/01/20 13 09:45:00 AM Not Available Not Available Not Available Premarin 0.625 mg tablet take 1 tablet (0.625MG ) by ORAL route every day for 21 consecut stefani days, followed by 7 days off 06/14 completed Prescrib ed Elsewher e: No Locat ion: [facility] odify By: bertha Villalta nter DateTime : 03/29/20 11 10:45:24 AM Not Available Not Available Not Available duloxetin e 60 mg capsule,d elayed release active Not Available Not Available Not Available [place] 3 Fish Oil 684 mg-1,200 mg capsule,d elayed release active Prescrib ed Elsewher e: Yes Loca tion: [facility] odify By: hemalatha rodrigez DateTime : 04/21/20 11 03:00:00 PM Not Available Not Available Not Available Vitals Date Recorded Body height Body mass index (BMI) Body weight Provider Name and Address Organization Details Last Updated DateTime 11/18/2021 171.45 cm 29 kg/m2 33649.37 g Marquita Almazan [facility] 11/18/2021 12:53:50 Date Recorded Systolic blood pressure Diastolic blood pressure Provider Name and Address Organization Details Last Updated DateTime 11/18/2021 132 mm[Hg] 82 mm[Hg] Fany Child [facility]- [address], [place], [address], [facility] 11/18/2021 13:13:40 Social History Question Answer Notes LastModified by Organizat ion Details LastModified Time Tobacco Smoking Status Never Smoker Marquita vergara, [facility] 11/18/2021 12:56:23 What Is Your Level Of Alcohol Consumption? Occasional [email or web address] Information not available 11/18/2021 Are You Blind Or Do You Have Difficulty Seeing? No [email or web address] Information n ot available 11/18/2021 What Is Your Level Of Caffeine Consumption? Moderate [email or web address] Information not available 11/18/2021 In The 14 Days Before Symptom Onset, Have You Had Close Contact With A Laboratory-confirm ed COVID-19 While That Case Was Ill? No [email or web address] Information n ot available 11/18/2021 In The 14 Days Before Symptom Onset, Have You Had Close Contact With A Person Who Is Under Investigation For COVID-19 While That Person Was Ill? No [email or web address] Information not available 11/18/2021 Have You Been To An Area Known To Be High Risk For COVID-19? No [email or web address] Information not available 11/18/2021 Are You Deaf Or Do You Have Serious Difficulty Hearing? No [email or web address] Information not available 11/18/2021 What Type Of Diet Are You Following? REGULAR [email or web address] Information n ot available 11/18/2021 Have You Ever Been Counseled For Unhealthy Alcohol Use? No [email or web address] Information not available 11/18/2021 Do You Use Your Seat Belt Or Car Seat Routinely? Yes [email or web address] Information not available 11/18/2021 Do You Have Smoke And Carbon Monoxide Detectors In Your Home? Yes [email or web address] Information not available 11/18/2021 Do You Feel Stressed (tense, Restless, Nervous, Or Anxious, Or Unable To Sleep At Night)? [id number] [email or web address] Information not available 11/18/2021 Do You Use Any Illicit Or Recreational Drugs? No [email or web address] Information not available 11/18/2021 Do You Use Sunscreen Routinely? Yes [email or web address] Information not available 11/18/2021 Has Tobacco Cessation Counseling Been Provided? No [email or web address] Information not available 11/18/2021 Do You Or Have You Ever Used Any Other Forms Of Tobacco Or Nicotine? No Information not available 11/18/2021 Sex: Unknown Functional Status Question Answer Note LastModified by Organizat ion Details LastModified Time Do you have difficulty walking or climbing stairs? No [email or web address] Information not available 11/18/2021 Are you able to walk? YESWOREST [email or web address] Information not available 11/18/2021 Are you able to care for yourself? Yes [email or web address] Information not available 11/18/2021 Do you have difficulty dressing or bathing? No [email or web address] Information not available 11/18/2021 What is your exercise level? Occasional [email or web address] Information not available 11/18/2021 Mental Status None recorded. Family History Relationship Description Onset Age of this Age Resolved Age Notes LastModified by Organization Details LastModified Time Mother Malignant melanoma [email or web address] Not available 12/23 14:15:56 Father Diabetes mellitus [email or web address] Not available 12/23 14:16:05 Father Hypertensive disorder [email or web address] Not available 12/23 14:16:15 Son Diabetes mellitus [email or web address] Not available 12/23 14:16:29 Son Seizure [email or web address] Not availabl e 12/23/2021 14:16:51 Notes:Father: Diabetes melli tus, Hypertension Mother: Melanoma Son: Seizure disorder, Diabetes mellitus Medical History Condition Response Allergies (Food, seasonal, environmental ) N Other N Breast Cancer N Drug/Latex Allergies/Reactions Y Blood Transfusion N Dermatologic Disorders N Lung Disease N Defects or Inherited Disease N Breast Problem Y Gestational Diabetes N Hematologic disorders N Anesthesia Complications N History of STI N Deep Vein Thrombosis Y Polycystic ovary syndrome N Anxiety Disorder Y Autoimmune disease N Arthritis N Infertility N Polyps N Acid Reflux (GERD) Y History of abnormal pap N Cancer N Stroke N Varicosities N Neurologic/Epilepsy N Endometriosis N High Cholesterol N Headaches N Fibromyalgia N Kidney Disease N Heart Problems Y Kidney or Bladder Problems N Thyroid Problems N GI Problems N Eating Disorder N Anemia Y Art (IVF or FET) N Psychiatric Illness N Ovarian Cancer N Diabetes N Pulmonary (TB, Asthma) N Hepatitis/Liver Disease N No Past Medical History N Eczema N Urinary Tract Infection N Abuse/Domestic Violence N Asthma N Trauma/Violence N Depression/ depression Y Heart Disease Y Pre-Eclampsia N Hypertension Y Osteoporosis N Thrombophilias N Gynecological History Statement/Question Response Abnormal Pap N Date of Last Colonoscopy 08/24/2006 Date of Last Mammogram 08/02/2020 Date of LMP 08/24/2009 STIs/STDs N Date of DEXA bone scan Date of Last Pap Smear 11/18/2021 Current Control Method Menopause LMP Approximate Obstetrics History GPAL:G 3 P 3 0 0 3 Type Value Full Term 3 Living 3 Total 3 Past Encounters Encounter ID Performer Location Encounter Start Date Encounter Closed Date Diagnosis/Indication Diagnosis SNOMED-CT Code Diagnosis ICD10 Code Diagnosis Note [id number] Fany Child [facility] [address] [address] 11/18/2021 11:59:33 11/18/2021 13:22:02 Gynecologic examination 08613228 Z01.419 Take Calcium with Vitamin D 12-1500mg daily. Do monthly self breast exams. It is advised to get annual flu shot in the fall and she could obtain at [facility] or [facility]. If you haven't received the Tdap vaccine in the last 10 years you should obtain one as well. Have mammogram yearly, bone density every 2-3 years and colonoscop y every 5-10 years depending on findings and history. Engage in daily exercise of low impact aerobic exercise 45-60 minutes 4-5 times weekly. Avoid tobacco and illicit drugs as well as using moderation with alcohol intake less than 1-2 8 oz beverages daily. This lifestyle behavior pattern will lead to less health conditions and longer life span. If BMI greater than 25 weight watchers or dietary consult advised. Questions have been answered. Patient appears to understand instructio ns, but if you have any further questions call or respond to this email Pap/hpv d/c after age 65yo per asccp unless otherwise indicated STD Screen declined (, [facility]) Genetic Screen discssed Colon Screen UTD PCP Dexa Screen Due 2022 Routine Labs UTD PCPmammo ordered Loves to garden & trying to can veggies this year. Generalize d anxiety disorder [id number] F41.1 Doing well on this medication Wishes to continue. 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 Post-MenopausalRe ported bypatient.Menopau sharmila Symptoms:no menopausal symptoms; normal vaginal lubrication Vaginal Bleeding:history of menopause having occurred; no history of post menopausal bleeding Urinary Symptoms:no hematuria; no incontinence; no nocturia; no urinary frequency Vulva:no genital lesion; no vulvar atrophy Vagina:normal vaginal discharge; no vaginal atrophy Breast:no breast lump; no nipple discharge; no breast pain Sexual Complaints:no sexual complaints Psychological Symptoms:no depression; no anxiety Preventive Measures:encourag e regular mammograms starting age 40; encourage self breast examination; encourage regular exercise; encourage no tobacco use; needs to schedule mammogram; history of recent colonoscopy Fany Child, [facility]- [address], [place], [address], [facility] 11/18/2021 13:15:19 OBGyn Episode Ob Episode Information Episode Created Date Number of Fetuses Patient Bloodtype Patient rh Status Prepregnancy Weight lbs Domestic Partner Domestic Partner Phone Father Name Supervisor Welding Equipment Repairer Status 12/24/19 22 1 CLOSED Fetus Data First Name Last Name Admitted to NICU Weight (g) Sex Living Outcome Pediatric Complications Fetus ID Race Codes Race Delivery Type 3515.33 8 F Full Term [id number] Vaginal Delivery Juan Calculation Initial Juan Date Initial Exam Date Initial Exam Provider Initial Ultrasound Date Last Menstrual Period Date Ultra Sound Weeks Gestation 0 Eighteen To Twenty Week Juan Update Ultra Sound Date Fundal Height At Umbil Quickening Date Ultra Sound Latest Weeks Gestation Final Juan Confirmed By Final Juan Confirmed Date Final Juan Date Ultra Sound Latest Days Gestation 0 0 Menstrual History Last Menstrual Date Menses Monthly On Bcp Conception Prior Menses Frequency Hcg Plus Date Menarche Onset Age Delivery Information Delivery Date Delivery Type Labor Anesthesia Weeks Gestation Incision Type Labor Labor Length Hrs Delivered By Post Complications Tubal Sterilization Discharge Date Comments 0 40 Discharge Information Feeding Method Contraceptive Method Maternal HG B and HCT Levels Ob Episode Information Episode Created Date Number of Fetuses Patient Bloodtype Patient rh Status Prepregnancy Weight lbs Domestic Partner Domestic Partner Phone Father Name Supervisor Welding Equipment Repairer Status 12/24/19 22 1 CLOSED Fetus Data First Name Last Name Admitted to NICU Weight (g) Sex Living Outcome Pediatric Complications Fetus ID Race Codes Race Delivery Type 3798.83 3 M Full Term [id number] Vaginal Delivery Juan Calculation Initial Juan Date Initial Exam Date Initial Exam Provider Initial Ultrasound Date Last Menstrual Period Date Ultra Sound Weeks Gestation 0 Eighteen To Twenty Week Juan Update Ultra Sound Date Fundal Height At Umbil Quickening Date Ultra Sound Latest Weeks Gestation Final Juan Confirmed By Final Juan Confirmed Date Final Juan Date Ultra Sound Latest Days Gestation 0 0 Menstrual History Last Menstrual Date Menses Monthly On Bcp Conception Prior Menses Frequency Hcg Plus Date Menarche Onset Age Delivery Information Delivery Date Delivery Type Labor Anesthesia Weeks Gestation Incision Type Labor Labor Length Hrs Delivered By Post Complications Tubal Sterilization Discharge Date Comments 8 40 Discharge Information Feeding Method Contraceptive Method Maternal HG B and HCT Levels Ob Episode Information Episode Created Date Number of Fetuses Patient Bloodtype Patient rh Status Prepregnancy Weight lbs Domestic Partner Domestic Partner Phone Father Name Supervisor Welding Equipment Repairer Status 12/24/19 22 1 CLOSED Fetus Data First Name Last Name Admitted to NICU Weight (g) Sex Living Outcome Pediatric Complications Fetus ID Race Codes Race Delivery Type 3798.83 3 M Full Term [id number] Vaginal Delivery Juan Calculation Initial Juan Date Initial Exam Date Initial Exam Provider Initial Ultrasound Date Last Menstrual Period Date Ultra Sound Weeks Gestation 0 Eighteen To Twenty Week Juan Update Ultra Sound Date Fundal Height At Umbil Quickening Date Ultra Sound Latest Weeks Gestation Final Juan Confirmed By Final Juan Confirmed Date Final Juan Date Ultra Sound Latest Days Gestation 0 0 Menstrual History Last Menstrual Date Menses Monthly On Bcp Conception Prior Menses Frequency Hcg Plus Date Menarche Onset Age Delivery Information Delivery Date Delivery Type Labor Anesthesia Weeks Gestation Incision Type Labor Labor Length Hrs Delivered By Post Complications Tubal Sterilization Discharge Date Comments 2 40 Discharge Information Feeding Method Contraceptive Method Maternal HG B and HCT Levels
--- OUTSIDE RECORDS SUMMARY | 2024-09-15 01:47 | XMS_ITS | Clinical Summary ---
Author Organization [facility] Address [address] [place] [address]. 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 [employer] Gender Identity Not on file Sexual Orientation Not on file Plan of Treatment Health Maintenance Due Date Last Done Comments Colorectal Cancer Screening Colonoscopy (10 Years) 1952 Hepatitis C 1970 DTaP, Tdap and Td Vaccines ( 1 - Tdap) 1971 Mammogram Screening 1992 Zoster Vaccines (1 of 2) 2002 Dexa Scan (General) 2017 Pneumococcal Vaccine: 65+ Ye ars (1 of 1 - PCV) 2017 COVID-19 Vaccine ( - 2023-2 5 season) 2024 Influenza Adult (#1) 2024 RSV Immunization or 60+ Years (1 - 1-dose 75+ series) 2027 Meningococcal Vaccine Aged Out No tashi queenie eligible based on patient's age to complete this topic RSV Immunizations Under 20 Months Aged Out No longer eligible based on patient's age to complete this topic
== END 2024-09-08 08:53 | disposition home or self-care (01) ==
LOC: ANHLAB 08:53
PROVIDERS: PCP Internal Medicine; Visit Provider Internal Medicine
DX: E78.5 Hyperlipidemia, unspecified (principal); I10 Essential (primary) hypertension; E03.9 Hypothyroidism, unspecified; D64.9 Anemia, unspecified; R73.9 Hyperglycemia, unspecified
CPT/HCPCS: 36415; 80053; 80061; 83036; 84439; 84443; 85025

== ENCOUNTER 2025-01-11 18:47 | Emergency (ER) | payer MEDICARE, SELFPAY ==
--- NOTE | ~2025-01-11 | XR_ITS ---
CHEST RADIOGRAPH, PA AND LATERAL CLINICAL HISTORY: chest pain . COMPARISON: 08/11/2024 TECHNIQUE: PA and lateral views of the chest. FINDINGS The cardiomediastinal silhouette is unremarkable. The lungs are clear. IMPRESSION: No focal infiltrate or effusion. Reviewed, dictated and finalized at location A.
[2025-01-11 18:42] VITALS: BP 176/84; PULSE 73; RESP 16; TEMP 36.4; O2SAT 98
--- NOTE | 2025-01-11 18:50 | ECG_ITS ---
Test Date: 2025-01-11 18:52:48 Measurements Intervals [place] Rate: 72 P: 37 CA: 162 QRS: 17 QRSD: 82 T: 35 QT: 373 QTc: 410 Interpretive Statements SINUS RHYTHM LOW QRS VOLTAGE IN PRECORDIAL LEADS [QRS DEFLECTION < 1.0 mV IN CHEST LEADS] Compared to ECG 08/11/2024 22:16:23 Low QRS voltage now present Ventricular premature complex(es) no longer present ST (T wave) deviation no longer present Electronically Signed On 01-12-2025 13:56:57 CDT by Josh Torres M.D.
[2025-01-11 18:51] VITALS: O2SAT 100
[2025-01-11 19:02] LABS: Basophils Absolute Auto 0.1 K/mm3 (0.0-0.1); Basophils Percent Auto 0.6 % (0.2-1.2); Eosinophils Absolute Auto 0.4 K/mm3 (0-0.3); Eosinophils Percent Auto 3.6 % (0-4.4); Hematocrit 36.5 % (37.0-47.0); Hemoglobin 12.1 g/dL (12.0-15.0); Immature Granulocyte Absolute 0.03 K/mm3 (0.00-0.031); Immature Granulocyte Percent A 0.3 % (0-0.5); Lymphocytes Absolute Auto 4.22 K/mm3 (0.9-3.2); Lymphocytes Percent Auto 36.6 % (18.3-44.2); Mean Corpuscular HGB Conc 33.2 g/dl (32-36); Mean Corpuscular Hemoglobin 32.9 pg (26-34); Mean Corpuscular Volume 99.2 fl (80-100); Mean Platelet Volume 10.8 fl (7.4-10.4); Monocytes Absolute Auto 0.8 K/mm3 (0.1-0.6); Monocytes Percent Auto 6.6 % (2.6-8.5); Neutrophils Percent Auto 52.3 % (45.5-73.1); Platelet Count Result 266 k/mm3 (150-375); Red Blood Count 3.68 M/mm3 (4.2-5.4); White Blood Count 11.5 K/mm3 (4.5-10.0)
[2025-01-11 19:13] LABS: Alanine Aminotransferase 18 U/L (6-35); Albumin Level 4.6 g/dL (3.5-5.1); Alkaline Phosphatase 95 U/L (38-126); Anion Gap 14 mmol/L (4-12); Aspartate Amino Transferase 34 U/L (14-36); Bilirubin,Total 0.3 mg/dL (0.2-1.3); Blood Urea Nitrogen 23 mg/dL (7-17); Calcium 9.7 mg/dL (8.4-10.2); Carbon Dioxide 24 mmol/L (22-30); Chloride 102 mmol/L (98-107); Estimated CRCL calculation 38 ml/min; Estimated Glomerular Filt Rate 43; Glucose 113 mg/dL (65-110); Lipase 69 U/L (23-300); Potassium 3.5 mmol/L (3.4-5.0); Sodium 140 mmol/L (137-145)
[2025-01-11 19:24] LABS: Troponin I < 0.012 ng/mL (0.000-0.034)
[2025-01-11 19:30] VITALS: BP 171/74; PULSE 74; RESP 13; O2SAT 99
[2025-01-11 19:31] LABS: Prothrombin Time 13.6 Seconds (11.1-14.7)
[2025-01-11 19:32] LABS: Partial Thromboplastin Time 25.4 Seconds (22.3-36.8)
--- OUTSIDE RECORDS SUMMARY | 2025-01-11 19:43 | XMS_ITS | Data Portability ---
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 Patient will come back in a year unless there are new symptoms. [email or web address] Not available 11/18/2021 12:53:06 Plan of Treatment Reminders Order Date Submit Date Provider Last Modified By Organization Details Last Modified Time Details Appointments None recorded. Lab None recorded. Referral None recorded. Procedures None recorded. Surgeries None recorded. Imaging None recorded. Medication Orders duloxetine 60 mg capsule,del ayed release 2021 022 [facility], [address] [place] [address], [phone], 13:07:39 Patient TargetsNo targets recorded. Patient InstructionsNo instructions recorded. Reason for Referral None Reported. Problems Name Problem SNOMED Code Status Onset Date Resolution Date Notes Provider Name and Address Organization Details Recorded Time Screenin g for malignan t neoplasm of rectum Completed 201006/14/2012 Screenin g for malignan t neoplasm s of the rectum;R ecorded Elsewher e: No Locat ion: [facility] S ource: EHR Cost Specialist анна: N Practi ce ID: 0001 Christopher lable Time: 03:00:00 PM Marquita vergara [facility] 12:54:56 Screenin g for malignan t neoplasm of cervix Completed 201006/14/2012 Screenin g for malignan t neoplasm s of the cervix;R ecorded Elsewher e: No Locat ion: [facility] S ource: EHR Cost Specialist анна: N George ce ID: 0001 Christopher lable Time: 03:00:00 PM Marquita vergara [facility] 2 12:54:49 Speciali zed medical examinat ion Completed 201006/14/2012 Gynecolo gical Examinat ion;[place] rded Elsewher e: No Locat ion: [facility] S ource: EHR Cost Specialist анна: N Maribellti ce ID: 0001 Christopher lable Time: 03:00:00 PM Marquita vergara [facility] 2 12:55:14 Anemia [id number] Completed 201006/14/2012 Anemia;R ecorded Elsewher e: No Locat ion: [facility] S ource: EHR Cost Specialist анна: N George ce ID: 0001 Christopher lable Time: 03:00:00 PM Not Available [facility] 0 21:52:23 Problem Notes None recorded. Procedures Surgical History Date Name Laterality Status Provider Name and Address Organization Details Recorded Time 11/19/19 Date of Last Pap Smear completed Marquita Almazan [facility] 11/18/2021 12:55:21 08/02/20 20 Date of Last Mammogram completed Marquita Almazan [facility] 12/23/2021 14:11:41 08/24/19 07 Date of Last Colonoscopy completed Marquita Almazan [facility] 12/23/2021 14:18:01 08/24/19 07 Colonoscopy completed Marquitaramona Almazan [facility] 12/23/2021 14:17:50 08/24/19 07 lumpectomy of breast completed Marquitaramona Almazan [facility] 12/23/2021 14:18:26 08/24/19 07 cardiac catheterization completed Marquita Almazan [facility] 12/23/2021 14:18:53 08/24/18 95 cholecystectomy completed Marquita Almazan [facility] 12/23/2021 14:17:40 Imaging Results None recorded. Procedure Notes None recorded. Medical Equipment None Reported. Allergies Allergen ID Allergen Name Allergen Category Reaction Reaction Severity Criticality Documentation Date Start Date Code Code System Note Provider Name and Address Organization Details Recorded Time 23825 acetamino phen medicatio n Not available Not available Not available 08/10/2020 161 RxNorm Comme nt: [facility] Cau sativ e Agent : Darvo cet-N 100; Not Available [facility] 0 14:14:54 94505 aspirin medicatio n Not available Not available Not available 08/10/2020 1191 RxNorm Comme nt: [facility]; Not Available [facility] 0 14:14:54 25074 metronida zole medicatio n Not available Not available Not available 08/10/2020 6922 RxNorm Comme nt: [facility]at [facility]; Not Available [facility] 0 14:14:54 97608 Darvocet- N medicatio n Not available Not available Not available 11/18/2021 54557 UNK Marquita Almazan [facility], [facility] 2 12:54:08 Medications Name Sig Start Date Stop Date Status Note LastModified by Organization Details LastModified Time carvedilo l 25 mg tablet active Not Available Not Available Not Available carvedilo l 12.5 mg tablet take 1 tablet by oral route 2 times every day with food active Prescrib ed Elsewher e: Yes Loca tion: [facility] M odify By: anthony Napoles ncounter DateTime [...] Elsewher e: No Locat ion: Robert napoles [facility] odify By: bertha Worthingtonou nter DateTime : 03/29/20 11 10:45:24 AM Not Available Not Available Not Available pantopraz ole 20 mg tablet,de layed release take 2 tablet by ORAL route every day 11/18 completed Prescrib ed Elsewher e: Yes Loca tion: Robert napoles [facility] odify By: kaity Pascualte r DateTime : 03/29/20 11 10:45:24 AM Not Available Not Available Not Available Macrobid 100 mg capsule take 1 capsule (100MG) by oral route every 12 hours with food 07/17 completed Prescrib ed Elsewher e: No Locat ion: Robert napoles [facility] odify By: cmedical Encount er DateTime : 07/08/20 13 01:14:49 PM Not Available Not Available Not Available pantopraz ole 40 mg tablet,de layed release active Not Available Not Available Not Available Cipro 500 mg tablet take 1 tablet (500MG) by oral route every 12 hours 07/08 completed Prescrib ed Elsewher e: No Locat ion: Robert napoles [facility] odify By: cmedical Encount er DateTime : 07/08/20 13 01:14:49 PM Not Available Not Available Not Available aspirin 81 mg tablet take 1 tablet by oral route every day 11/18 completed Prescrib ed Elsewher e: Yes Loca tion: Robert napoles [facility] odify By: hemalatha Napoles ncounter DateTime : 04/21/20 11 03:00:00 PM Not Available Not Available Not Available Prempro 0.625 mg-2.5 mg tablet TAKE 1 TABLET BY MOUTH EVERY DAY 07/12 completed Prescrib ed Elsewher e: No [facility] od[facility] By: david arzate DateTime : 02/22/20 14 02:16:08 PM Not Available Not Available Not Available lisinopri l 40 mg tablet take 1 tablet by oral route every day active Not Available Not Available No t Available lisinopri l 2.5 mg tablet take 1 tablet by ORAL route every day 07/12 completed Prescrib ed Elsewher e: Yes Loca tion: [facility] odify By: david arzate DateTime : 03/29/20 11 10:45:24 AM Not Available Not Available Not Available buspirone 15 mg tablet take 1 tablet by oral route 2 times every day 11/18 completed Prescrib ed Elsewher e: No Locat ion: [facility] odify By: bertha Villalta nter DateTime : 07/22/20 16 08:15:00 AM Not Available Not Available Not Available Vitamins and Minerals tablet active Prescrib ed Elsewher e: Yes Loca tion: [facility] odify By: shahid shore DateTime : 07/01/20 13 09:45:00 AM Not Available Not Available Not Available Premarin 0.625 mg tablet take 1 tablet (0.625MG ) by ORAL route every day for 21 consecut stefani days, followed by 7 days off 06/14 completed Prescrib ed Elsewher e: No Locat ion: [facility] odify By: bertha Villalta nter DateTime : 03/29/20 11 10:45:24 AM Not Available Not Available Not Available duloxetin e 60 mg capsule,d elayed release active Not Available Not Available Not Available [place] 3 Fish Oil 684 mg-1,200 mg capsule,d elayed release active Prescrib ed Elsewher e: Yes Loca tion: [facility] odify By: hemalatha rodrigez DateTime : 04/21/20 11 03:00:00 PM Not Available Not Available Not Available Vitals Date Recorded Body height Body mass index (BMI) Body weight Provider Name and Address Organization Details Last Updated DateTime 11/18/2021 171.45 cm 29 kg/m2 63804.37 g Marquita Almazan [place] [facility] 11/18/2021 12:53:50 Date Recorded Systolic blood pressure Diastolic blood pressure Provider Name and Address Organization Details Last Updated DateTime 11/18/2021 132 mm[Hg] 82 mm[Hg] Fany Child [facility]- [address], [place], [address], [facility] 11/18/2021 13:13:40 Social History Question Answer Notes LastModified by Organizat ion Details LastModified Time Tobacco Smoking Status Never Smoker Marquita vergara, [facility] 11/18/2021 12:56:23 Are You Blind Or Do You Have Difficulty Seeing? No [email or web address] Information n ot available 11/18/2021 What Is Your Level Of Caffeine Consumption? Moderate [email or web address] Information not available 11/18/2021 In The 14 Days Before Symptom Onset, Have You Had Close Contact With A Laboratory-confirm ed COVID-19 While That Case Was Ill? No Information n ot available 11/18/2021 In The 14 Days Before Symptom Onset, Have You Had Close Contact With A Person Who Is Under Investigation For COVID-19 While That Person Was Ill? No [email or web address] Information not available 11/18/2021 Have You Been To An Area Known To Be High Risk For COVID-19? No [email or web address] Information not available 11/18/2021 Are You Deaf Or Do You Have Serious Difficulty Hearing? No [email or web address] Information not available 11/18/2021 What Type Of Diet Are You Following? REGULAR [email or web address] Information n ot available 11/18/2021 Have You Ever Been Counseled For Unhealthy Alcohol Use? No [email or web address] Information not available 11/18/2021 Do You Use Your Seat Belt Or Car Seat Routinely? Yes [email or web address] Information not available 11/18/2021 Do You Have Smoke And Carbon Monoxide Detectors In Your Home? Yes [email or web address] Information not available 11/18/2021 Do You Use Sunscreen Routinely? Yes [email or web address] Information not available 11/18/2021 Has Tobacco Cessation Counseling Been Provided? No [email or web address] Information not available 11/18/2021 Do You Have Difficulty Walking Or Climbing Stairs? No [email or web address] Information not available 11/18/2021 Sex: Unknown Functional Status Question Answer Note LastModified by Organizat ion Details LastModified Time Do you use any illicit or recreational drugs? No [email or web address] Information not available 11/18/2021 Do you or have you ever used any other forms of tobacco or nicotine? No Information not available 11/18/2021 What is your level of alcohol consumption? Occasional [email or web address] Information not available 11/18/2021 Are you able to walk? YESWOREST [email or web address] Information not available 11/18/2021 Are you able to care for yourself? Yes Information n ot available 11/18/2021 Do you have difficulty dressing or bathing? No [email or web address] Information not available 11/18/2021 What is your exercise level? Occasional [email or web address] Information not available 11/18/2021 Mental Status Question Answer Note LastModified by Organization D etails LastModified Time Do you feel stressed (tense, restless, nervous, or anxious, or unable to sleep at night)? [id number] [email or web address] Information not available 11/18/2021 Family History Relationship Description Onset Age of this Age Resolved Age Notes LastModified by Organization Details LastModified Time Mother Malignant melanoma [email or web address] Not available 12/23 14:15:56 Father Diabetes mellitus [email or web address] Not available 12/23 14:16:05 Father Hypertensive disorder [email or web address] Not available 12/23 14:16:15 Son Diabetes mellitus [email or web address] Not available 12/23 14:16:29 Son Seizure [email or web address] Not availabl e 12/23/2021 14:16:51 Notes:Father: Diabetes [...] SNOMED-CT Code Diagnosis ICD10 Code Diagnosis Note [id number] Fany Child , [facility] [address] [address] 11/18/2021 11:59:33 11/18/2021 13:22:02 Gynecologic examination [id number] Z01.419 Take Calcium with Vitamin D 12-1500mg daily. Do monthly self breast exams. It is advised to get annual flu shot in the fall and she could obtain at [facility] or [facility] clinic. If you haven't received the Tdap [...] STD Screen declined (, not in a critical access hospitalh ip) Genetic Screen discssed Colon Screen UTD PCP Dexa Screen Due 2022 Routine Labs UTD PCPmammo ordered Loves to garden & trying to can veggies this year. Generalize d anxiety disorder [id number] F41.1 Doing well on this medication Wishes [...] Anders Member ID Guarantor Name 11/18/2021 1 [place] Bre Morley oRoseveltalenacamelia [id number] 29 Notes Date Note Type Note Provider Name and Address Organization Details Recorded Time 11/18/2021 text/html Annual Clinical Exercise Specialist Post-MenopausalRe ported bypatient.[place] sharmila Symptoms:no menopausal symptoms; [...] mammogram; history of recent colonoscopy Fany Child, [facility]- [address], [place], [address], [facility] 11/18/2021 13:15:19 OBGyn Episode Ob Episode Information Episode Created Date Number of Fetuses Patient Bloodtype Patient rh Status Prepregnancy Weight lbs Domestic Partner Domestic Partner Phone Father Name Civil Defense Director Status 12/24/19 22 1 CLOSED Fetus Data First Name Last Name Admitted to NICU Weight (g) Sex Living Outcome Pediatric Complications Fetus ID Race Codes Race Delivery Type 3515.33 8 F Full Term 04451 Vaginal Delivery Juan Calculation Initial Juan Date [...] Domestic Partner Domestic Partner Phone Father Name Civil Defense Director Status 12/24/19 22 1 CLOSED Fetus Data First Name Last Name Admitted to NICU Weight (g) Sex Living Outcome Pediatric Complications Fetus ID Race Codes Race Delivery Type 3798.83 3 M Full Term 07754 Vaginal Delivery Juan Calculation Initial Juan Date [...] Domestic Partner Domestic Partner Phone Father Name Civil Defense Director Status 12/24/19 22 1 CLOSED Fetus Data First Name Last Name Admitted to NICU Weight (g) Sex Living Outcome Pediatric Complications Fetus ID Race Codes Race Delivery Type 3798.83 3 M Full Term 03813 Vaginal Delivery Juan Calculation Initial Juan Date [...]
--- NOTE | 2025-01-11 20:17 | ED.GENADULT ---
HPI - General Adult General Chief complaint: Chest Pain Stated complaint: CP, NAUSEA Time Seen by Provider: 01/11/25 19:14 History of Present Illness HPI narrative: 74-year-old female presenting to the emergency department for evaluation for epigastric and abdominal pain. Patient states she had just finished eating grilled cheese and fries when the epigastric pain started. Patient denies any radiation of the pain to her chest back arms or neck. Patient states the pain was associated with diarrhea. Emergency department patient states that her symptoms have since resolved. Patient is still having some diarrhea. Patient denies any prior history of coronary disease. Patient did have a stress test approximately 5 years ago which was negative. Patient has no coronary artery stents in place. Related Data Home Medications ?Medication ?Instructions ?Recorded ?Confirmed ?Last Taken ?Type apple cider vinegar 300 mg tablet 300 mg PO DAILY 12/02/21 09/12/24 Unknown History ascorbic acid 100 mg-elderberry 1 tablet PO DAILY 12/02/21 09/12/24 Unknown History fruit 50 mg chewable tablet (Airborne (elderberry)) cholecalciferol (vitamin D3) 25 25 mcg PO DAILY 12/02/21 09/12/24 Unknown History mcg (1,000 unit) capsule mecobalamin (vitamin B12) 1,000 1,000 mcg PO DAILY 12/02/21 09/12/24 Unknown History mcg chewable tablet Allergies Allergy/AdvReac Type Severity Reaction Status Date / Time aspirin Allergy Intermediate Abdominal Verified 01/11/25 18:50 Pain tetracycline Allergy Mild UNKNOWN Verified 01/11/25 18:50 Sulfa (Sulfonamide AdvReac Intermediate Nausea Verified 01/11/25 18:50 Antibiotics) hydrocodone AdvReac Mild INCREASED Verified 01/11/25 18:50 HEART RATE metronidazole AdvReac Mild NAUSEA/VOMI Verified 01/11/25 18:50 TING propoxyphene AdvReac Mild INCREASED Verified 01/11/25 18:50 HR Review of Systems Review of Systems: All systems reviewed & are unremarkable except as noted in HPI and below PMFSH Past Medical History Medical History Lumbar stenosis with neurogenic claudication Lumbar stenosis History of mitral valve prolapse Anemia Hyperlipidemia Hyperglycemia Essential (primary) hypertension Gastro-esophageal reflux disease without esophagitis Surgical History Surgical History History of cholecystectomy Family History Family History Sibling Family history of diabetes mellitus in first degree relative, Onset Age: 20 Patient's brother is Family history of lung cancer Mother Patient's mother is Father Patient's father is Social History Social History Smoking status: Never smoker Second hand tobacco smoke exposure: No Alcohol intake: never Substance use: never Lack of Transportation: No Lack of Food: Never True Current Housing: I Have Housing Concerned About Future Housing: No Difficulty Paying Gas/Electric Bills: No Difficulty Paying for Meds: No Currently Unemployed: No Education: Associate Degree Difficulty w/ Childcare or Family Care: No Gender identity (if verbalized by the patient): Female Exam Narrative: APPEARANCE: Well appearing, no pain, no distress, well-nourished. HEAD: normocephalic, atraumatic. EYES: PERRLA/EOMI, conjunctivae clear. NOSE: Normal no drainage EARS:TMS clear with good light reflex. THROAT: Pharynx clear, no exudate. NECK: Supple. No adenopathy, no masses. RESPIRATORY: Airway patent, respirations nonlabored. Clear to auscultation bilaterally, no rales, rhonchi, wheezing. CARDIOVASCULAR: Regular rate and rhythm without murmurs rubs or gallops. ABDOMINAL: Soft, nontender, nondistended, normal bowel sounds MUSCULOSKELETAL: Moves all extremities. Strength/ROM intact, No edema, No calf tenderness. NEURO: Alert. Cranial nerves II through XII intact. Good gait. Good coordination SKIN: Warm, dry. Normal Color Course Vital Signs Vital signs: Vital Signs Temperature 97.6 F 01/11/25 18:42 Pulse Rate 73 01/11/25 18:42 Respiratory Rate 16 01/11/25 18:42 Blood Pressure 176/84 H 01/11/25 18:42 Pulse Oximetry 98 01/11/25 18:42 Oxygen Delivery Room Air 01/11/25 18:42 Temperature 97.6 F 01/11/25 18:42 Pulse Rate 69 01/11/25 21:30 Respiratory Rate 15 01/11/25 21:30 Blood Pressure 146/69 H 01/11/25 21:30 Pulse Oximetry 97 01/11/25 21:30 Oxygen Delivery Room Air 01/11/25 18:51 Medical Decision Making MDM Narrative Medical decision making narrative: 74-year-old female presented to the emergency department for evaluation for epigastric abdominal pain. Patient is currently afebrile but does have a leukocytosis 11.5 and hemoglobin of 12.1. Patient's INR is 1.0. Patient does have a creatinine of 1.24 which is similar to her baseline. Patient has normal AST ALT alk-phos and lipase. Patient has a prior history of a cholecystectomy. Patient's initial troponin was less than 0.012. EKG shows normal sinus rhythm. Chest x-ray shows no acute cardiopulmonary abnormality. Patient did have negative serial troponins. And negative serial EKGs. Suspect gastritis versus esophagitis as the underlying etiology. Patient was updated the results of her workup and patient was encouraged to have additional outpatient cardiac testing. Patient was also encouraged to have follow-up with GI. Patient does take Protonix daily. Differential Diagnosis Differential Diagnosis: ACS, esophagitis, gastritis, pneumonia, pneumothorax Vital Signs Vital Signs: Vital Signs Temperature 97.6 F 01/11/25 18:42 Pulse Rate 73 01/11/25 18:42 Respiratory Rate 16 01/11/25 18:42 Blood Pressure 176/84 H 01/11/25 18:42 Pulse Oximetry 98 01/11/25 18:42 Oxygen Delivery Room Air 01/11/25 18:42 Temperature 97.6 F 01/11/25 18:42 Pulse Rate 69 01/11/25 21:30 Respiratory Rate 15 01/11/25 21:30 Blood Pressure 146/69 H 01/11/25 21:30 Pulse Oximetry 97 01/11/25 21:30 Oxygen Delivery Room Air 01/11/25 18:51 Lab Data 01/11/25 18:54 01/11/25 18:54 Labs: Lab Results 01/11/25 01/11/25 Range/Units 18:54 22:03 WBC 11.5 H (4.5-10.0) K/mm3 RBC 3.68 L (4.2-5.4) M/mm3 Hgb 12.1 (12.0-15.0) g/dL Hct 36.5 L (37.0-47.0) % MCV 99.2 (80-100) fl MCH 32.9 (26-34) pg MCHC 33.2 (32-36) g/dl RDW 14.0 (11.5-14.5) % Plt Count 266 (150-375) k/mm3 MPV 10.8 H (7.4-10.4) fl Immature Gran % (Auto) 0.3 (0-0.5) % Neut % (Auto) 52.3 (45.5-73.1) % Lymph % (Auto) 36.6 (18.3-44.2) % [place] % (Auto) 6.6 (2.6-8.5) % Eos % (Auto) 3.6 (0-4.4) % Baso % (Auto) 0.6 (0.2-1.2) % Lymph # (Auto) 4.22 H (0.9-3.2) K/mm3 [place] # (Auto) 0.8 H (0.1-0.6) K/mm3 Eos # (Auto) 0.4 H (0-0.3) K/mm3 Baso # (Auto) 0.1 (0.0-0.1) K/mm3 Abs Immat Gran (auto) 0.03 (0.00-0.031) K/mm3 Absolute Neuts (auto) 6.0 (1.3-6.7) K/mm3 Absolute Nucleated RBC 0.000 (0.0-0.012) K/mm3 Nucleated RBC % 0.0 (0.0-0.2) % PT 13.6 (11.1-14.7) Seconds INR 1.0 APTT 25.4 (22.3-36.8) Seconds Sodium 140 (137-145) mmol/L Potassium 3.5 (3.4-5.0) mmol/L Chloride 102 (98-107) mmol/L Carbon Dioxide 24 (22-30) mmol/L Anion Gap 14 H (4-12) mmol/L BUN 23 H D (7-17) mg/dL Creatinine 1.24 H (0.7-1.0) mg/dL Estim Creat Clear Calc 38 ml/min Estimated GFR 43 L (59 - ) Glucose 113 H (65-110) mg/dL Calcium 9.7 (8.4-10.2) mg/dL Total Bilirubin 0.3 (0.2-1.3) mg/dL AST 34 (14-36) U/L ALT 18 (6-35) U/L Alkaline Phosphatase 95 (38-126) U/L Troponin I < 0.012 < 0.012 (0.000-0.034) ng/mL Total Protein 8.0 (6.3-8.2) g/dL Albumin 4.6 (3.5-5.1) g/dL Lipase 69 (23-300) U/L Discharge Plan Discharge Clinical Impression: Abdominal pain, acute, epigastric Patient Disposition: Home Condition: Stable Instructions: Antibiotic Form, Diet for Stomach Ulcers and Gastritis (ED), Abdominal Pain (ED) Additional Instructions: Avoid alcohol and avoid NSAIDs. Follow a bland diet. Continue to take your Protonix daily as scheduled. Have close follow-up with GI. If you have any worsening symptoms then please call or return to the emergency department. Have close follow-up with your primary care physician for additional outpatient cardiac testing. Patient Language: Tuvaluan Prescriptions: No Action ascorbic acid-elderberry fruit [Airborne (elderberry)] 100-50 mg tablet,chewable 1 tablet PO DAILY apple cider vinegar 300 mg tablet 300 mg PO DAILY cholecalciferol (vitamin D3) 25 mcg (1,000 unit) capsule 25 mcg PO DAILY mecobalamin (vitamin B12) 1,000 mcg tablet,chewable 1,000 mcg PO DAILY duloxetine 60 mg capsule,delayed release(DR/EC) 60 mg PO .COMPLEX Qty: 45 3RF Rx Instructions: One every other day phenazopyridine [Pyridium] 200 mg tablet 200 mg PO TID Qty: 12 0RF Rx Instructions: Take after meals ondansetron 4 mg tablet,disintegrating 4 mg PO Q8H PRN (Reason: nausea and vomiting) Qty: 30 0RF dicyclomine 20 mg tablet 20 mg PO BID Qty: 30 0RF ibuprofen 600 mg tablet 600 mg PO TID Qty: 20 0RF cyclobenzaprine 10 mg tablet 10 mg PO TID PRN (Reason: muscle spasm) Qty: 20 0RF colchicine 0.6 mg tablet 0.6 mg PO ONCE Qty: 1 0RF indomethacin 50 mg capsule 50 mg PO TID Qty: 30 0RF Rx Instructions: administer with food or milk cephalexin 250 mg capsule 250 mg PO Q8H Qty: 21 0RF levothyroxine 25 mcg tablet 25 mcg PO DAILY Qty: 90 3RF carvedilol 25 mg tablet 25 mg PO BID Qty: 180 3RF lisinopril 40 mg tablet See Rx Instructions .ROUTE .COMPLEX Qty: 100 2RF Dose Instruction: TAKE 1 TABLET BY MOUTH DAILY Rx Instructions: TAKE 1 TABLET BY MOUTH DAILY pantoprazole 40 mg tablet,delayed release (DR/EC) 40 mg PO QAM Qty: 100 3RF allopurinol 300 mg tablet 300 mg PO DAILY Qty: 90 3RF Follow-up/Referrals: Armando Fernandes DO [Primary Care Provider] - Lio Valentine MD [Physician] -
[2025-01-11 20:30] VITALS: BP 146/62; PULSE 72; RESP 20; O2SAT 97
[2025-01-11 21:30] VITALS: BP 146/69; PULSE 69; RESP 15; O2SAT 97
--- NOTE | 2025-01-11 21:48 | PC.NURSE ---
Patient ambulated to the restroom with steady gate
[2025-01-11 22:31] LABS: Troponin I < 0.012 ng/mL (0.000-0.034)
== END 2025-01-11 22:58 | disposition home or self-care (01) ==
PROVIDERS: Emergency Medicine; Emergency Provider Emergency Medicine; PCP Internal Medicine
DX: R10.13 Epigastric pain (principal); I10 Essential (primary) hypertension; I34.1 Nonrheumatic mitral (valve) prolapse; E78.5 Hyperlipidemia, unspecified; K21.9 Gastro-esophageal reflux disease without esophagitis; Z86.2 Personal history of diseases of the blood and blood-forming organs and certain disorders involving the immune mechanism; Z90.49 Acquired absence of other specified parts of digestive tract
CPT/HCPCS: 36415; 71046; 80053; 83690; 84484; 85025; 85610; 85730; 93005; 99284

== ENCOUNTER 2025-01-30 15:37 | Outpatient (CLI) | payer MEDICARE, SELFPAY ==
--- NOTE | ~2025-01-30 | MM_ITS ---
EXAMINATION: MM screening nikunj BI w julia HISTORY: Screening TECHNIQUE: Craniocaudal and mediolateral oblique 3-D tomosynthesis images were obtained and synthetic 2-D images were generated. CAD analysis was submitted and interpreted. COMPARISON: Comparison to multiple prior studies sequentially, with oldest reviewed study dated 02/2018. BREAST PARENCHYMAL COMPOSITION: Not Dense: The breasts are almost entirely fatty. FINDINGS: There is no evidence of suspicious mass, calcification, or architectural distortion to sugg est malignancy in either breast. There has been no suspicious interval change. IMPRESSION: 1. No mammographic evidence of malignancy. 2. Recommend routine screening mammography in one year. BI-RADS Category 1: Negative Reviewed, dictated and finalized at location B.
--- OUTSIDE RECORDS SUMMARY | 2025-01-30 16:26 | XMS_ITS | Data Portability ---
Author Organization [facility] Address [address] [place] [address] Care Team Providers Care Professor In Family Studies Name Role Phone NITISH CURRY Primary Care Provider Assessment Encounter Date Assessment Date Assessment LastModified by Organization Details LastModified Time 11/18/2021 11/18/2021 Annual gynecological exam performed. Patient will come back in a year unless there are new symptoms. [email or web address] Not available 11/18/2021 12:53:06 Plan of Treatment Reminders Order Date Submit Date Provider Last Modified By Organization Details Last Modified Time Details Appointments None recorded. Lab None recorded. Referral None recorded. Procedures None recorded. Surgeries None recorded. Imaging None recorded. Medication Orders duloxetine 60 mg capsule,del ayed release 2021 022 [facility], [address] [place] [address], [id number], 13:07:39 Patient TargetsNo targets recorded. Patient InstructionsNo instructions recorded. Reason for Referral None Reported. Problems Name Problem SNOMED Code Status Onset Date Resolution Date Notes Provider Name and Address Organization Details Recorded Time Screenin g for malignan t neoplasm of rectum Completed 201006/14/2012 Screenin g for malignan t neoplasm s of the rectum;R ecorded Elsewher e: No Locat ion: [facility] S ource: EHR Ada Accommodation Consultant анна: N Practi ce ID: 0001 Christopher lable Time: 03:00:00 PM Marquita vergara [facility] 12:54:56 Screenin g for malignan t neoplasm of cervix Completed 201006/14/2012 Screenin g for malignan t neoplasm s of the cervix;R ecorded Elsewher e: No Locat ion: [facility] S ource: EHR Ada Accommodation Consultant анна: N George ce ID: 0001 Christopher lable Time: 03:00:00 PM Marquita vergara [facility] 2 12:54:49 Speciali zed medical examinat ion Completed 201006/14/2012 Gynecolo gical Examinat ion;[place] rded Elsewher e: No Locat ion: [facility] S ource: EHR Ada Accommodation Consultant анна: N Maribellti ce ID: 0001 Christopher lable Time: 03:00:00 PM Marquita vergara [facility] 2 12:55:14 Anemia [id number] Completed 201006/14/2012 Anemia;R ecorded Elsewher e: No Locat ion: [facility] S ource: EHR Ada Accommodation Consultant анна: N George ce ID: 0001 Christopher lable Time: 03:00:00 PM Not Available [facility] 0 21:52:23 Problem Notes None recorded. Procedures Surgical History Date Name Laterality Status Provider Name and Address Organization Details Recorded Time 11/19/19 Date of Last Pap Smear completed Marquita Almazan [facility] 11/18/2021 12:55:21 08/02/20 20 Date of Last Mammogram completed Marquita Almazan [facility] 12/23/2021 14:11:41 08/24/19 07 Date of Last Colonoscopy completed Marquita Almazan [facility] 12/23/2021 14:18:01 08/24/19 07 Colonoscopy completed Marquitaramona Almazan [facility] 12/23/2021 14:17:50 08/24/19 07 lumpectomy of breast completed Marquitaramona Almazan [facility] 12/23/2021 14:18:26 08/24/19 07 cardiac catheterization completed Marquita Almazan [facility] 12/23/2021 14:18:53 08/24/18 95 cholecystectomy completed Marquita Almazan [facility] 12/23/2021 14:17:40 Imaging Results None recorded. Procedure Notes None recorded. Medical Equipment None Reported. Allergies Allergen ID Allergen Name Allergen Category Reaction Reaction Severity Criticality Documentation Date Start Date Code Code System Note Provider Name and Address Organization Details Recorded Time 44625 acetamino phen medicatio n Not available Not available Not available 08/10/2020 161 RxNorm Comme nt: [facility] C[facility] sativ e Agent : Darvo cet-N 100; Not Available [facility] 0 14:14:54 75550 aspirin medicatio n Not available Not available Not available 08/10/2020 1191 RxNorm Comme nt: [facility]; Not Available [facility] 0 14:14:54 56603 metronida zole medicatio n Not available Not available Not available 08/10/2020 6922 RxNorm Comme nt: [facility]; Not Available [facility] 0 14:14:54 92801 Darvocet- N medicatio n Not available Not available Not available 11/18/2021 29811 UNK Marquita Almazan [facility], [facility] 2 12:54:08 Medications Name Sig Start Date Stop Date Status Note LastModified by Organization Details LastModified Time carvedilo l 25 mg tablet active Not Available Not Available Not Available carvedilo l 12.5 mg tablet take 1 tablet by oral route 2 times every day with food active Prescrib ed Elsewher e: Yes Loca tion: [facility] M odify By: anthony Napoles ncounter DateTime [...] Elsewher e: No Locat ion: [facility] odify By: bertha Worthingtonou nter DateTime : 03/29/20 11 10:45:24 AM Not Available Not Available Not Available pantopraz ole 20 mg tablet,de layed release take 2 tablet by ORAL route every day 11/18 completed Prescrib ed Elsewher e: Yes Loca tion: [facility] nap[facility] odify By: kaity Pascualte r DateTime : 03/29/20 11 10:45:24 AM Not Available Not Available Not Available Macrobid 100 mg capsule take 1 capsule (100MG) by oral route every 12 hours with food 07/17 completed Prescrib ed Elsewher e: No Locat ion: [facility] odify By: cmedical Encount er DateTime : 07/08/20 13 01:14:49 PM Not Available Not Available Not Available pantopraz ole 40 mg tablet,de layed release active Not Available Not Available Not Available Cipro 500 mg tablet take 1 tablet (500MG) by oral route every 12 hours 07/08 completed Prescrib ed Elsewher e: No Locat ion: [facility] nap[facility] odify By: cmedical Encount er DateTime : 07/08/20 13 01:14:49 PM Not Available Not Available Not Available aspirin 81 mg tablet take 1 tablet by oral route every day 11/18 completed Prescrib ed Elsewher e: Yes Loca tion: [facility] odify By: hemalatha Napoles ncounter DateTime : 04/21/20 11 03:00:00 PM Not Available Not Available Not Available Prempro 0.625 mg-2.5 mg tablet TAKE 1 TABLET BY MOUTH EVERY DAY 07/12 completed Prescrib ed Elsewher e: No Locat ion: [facility] odify By: david arzate DateTime : 02/22/20 14 02:16:08 PM Not Available Not Available Not Available lisinopri l 40 mg tablet take 1 tablet by oral route every day active Not Available Not Available No t Available lisinopri l 2.5 mg tablet take 1 tablet by ORAL route every day 07/12 completed Prescrib ed Elsewher e: Yes Loca tion: [facility] odify By: david arzate DateTime : 03/29/20 11 10:45:24 AM Not Available Not Available Not Available buspirone 15 mg tablet take 1 tablet by oral route 2 times every day 11/18 completed Prescrib ed Elsewher e: No Locat ion: [facility] odify By: bertha Villalta nter DateTime : 07/22/20 16 08:15:00 AM Not Available Not Available Not Available Vitamins and Minerals tablet active Prescrib ed Elsewher e: Yes Loca tion: [facility] odify By: shahid shore DateTime : 07/01/20 13 09:45:00 AM Not Available Not Available Not Available Premarin 0.625 mg tablet take 1 tablet (0.625MG ) by ORAL route every day for 21 consecut stefani days, followed by 7 days off 06/14 completed Prescrib ed Elsewher e: No Locat ion: [facility] odify By: bertha Villalta nter DateTime : 03/29/20 11 10:45:24 AM Not Available Not Available Not Available duloxetin e 60 mg capsule,d elayed release active Not Available Not Available Not Available Warren 3 Fish Oil 684 mg-1,200 mg capsule,d elayed release active Prescrib ed Elsewher e: Yes Loca tion: [facility] odify By: hemalatha rodrigez DateTime : 04/21/20 11 03:00:00 PM Not Available Not Available Not Available Vitals Date Recorded Systolic blood pressure Diastolic blood pressure Provider Name and Address Organization Details Last Updated DateTime 11/18/2021 132 mm[Hg] 82 mm[Hg] Fany Child, [facility]- [address], [place], [address], [facility] 11/18/2021 13:13:40 Date Recorded Body height Body mass index (BMI) Body weight Provider Name and Address Organization Details Last Updated DateTime 11/18/2021 171.45 cm 29 kg/m2 82876.37 g Marquita Almazan [facility] 11/18/2021 12:53:50 Social History Question Answer Notes LastModified by Organizat ion Details LastModified Time Tobacco Smoking Status Never Smoker Marquita Stubbstz null, [facility] 11/18/2021 12:56:23 Are You Blind Or Do You Have Difficulty Seeing? No [email or web address] Information n ot available 11/18/2021 What Is Your Level Of Caffeine Consumption? Moderate [email or web address] Information not available 11/18/2021 In The 14 Days Before Symptom Onset, Have You Had Close Contact With A Laboratory-confirm ed COVID-19 While That Case Was Ill? No [email or web address] Information n ot available 11/18/2021 In The 14 Days Before Symptom Onset, Have You Had Close Contact With A Person Who Is Under Investigation For COVID-19 While That Person Was Ill? No Information not available 11/18/2021 Have You Been To An Area Known To Be High Risk For COVID-19? No [email or web address] Information not available 11/18/2021 Are You Deaf Or Do You Have Serious Difficulty Hearing? No [email or web address] Information not available 11/18/2021 What Type Of Diet Are You Following? REGULAR [email or web address] Information n ot available 11/18/2021 Have You Ever Been Counseled For Unhealthy Alcohol Use? No [email or web address] Information not available 11/18/2021 Do You Use Your Seat Belt Or Car Seat Routinely? Yes [email or web address] Information not available 11/18/2021 Do You Have Smoke And Carbon Monoxide Detectors In Your Home? Yes [email or web address] Information not available 11/18/2021 Do You Use Sunscreen Routinely? Yes [email or web address] Information not available 11/18/2021 Has Tobacco Cessation Counseling Been Provided? No Information not available 11/18/2021 Do You Have Difficulty Walking Or Climbing Stairs? No [email or web address] Information not available 11/18/2021 Sex: Unknown Functional Status Question Answer Note LastModified by Organizat ion Details LastModified Time Do you use any illicit or recreational drugs? No [email or web address] Information not available 11/18/2021 Do you or have you ever used any other forms of tobacco or nicotine? No [email or web address] Information not available 11/18/2021 What is your level of alcohol consumption? Occasional [email or web address] Information not available 11/18/2021 Are you able to walk? YESWOREST [email or web address] Information not available 11/18/2021 Are you able to care for yourself? Yes [email or web address] Information n ot available 11/18/2021 Do you have difficulty dressing or bathing? No [email or web address] Information not available 11/18/2021 What is your exercise level? Occasional [email or web address] Information not available 11/18/2021 Mental Status Question Answer Note LastModified by Organization D etails LastModified Time Do you feel stressed (tense, restless, nervous, or anxious, or unable to sleep at night)? [id number] [email or web address] Information not available 11/18/2021 Family History Relationship Description Onset Age of this Age Resolved Age Notes LastModified by Organization Details LastModified Time Mother Malignant melanoma [email or web address] Not available 12/23 14:15:56 Father Diabetes mellitus [email or web address] Not available 12/23 14:16:05 Father Hypertensive disorder [email or web address] Not available 12/23 14:16:15 Son Diabetes mellitus [email or web address] Not available 12/23 14:16:29 Son Seizure [email or web address] Not availabl e 12/23/2021 14:16:51 Notes:Father: Diabetes [...] SNOMED-CT Code Diagnosis ICD10 Code Diagnosis Note [id number] Fany Child , [facility] [address] [address] 11/18/2021 11:59:33 11/18/2021 13:22:02 Gynecologic examination [id number] Z01.419 Take Calcium with Vitamin D 12-1500mg daily. Do monthly self breast exams. It is advised to get annual flu shot in the fall and she could obtain at [facility] or [facility] clinic. If you haven't received the [...] STD Screen declined (, [facility]) Genetic Screen discssed Colon Screen UTD PCP Dexa Screen Due 2022 Routine Labs UTD PCPmammo ordered Loves to garden & trying to can veggies this year. Generalize d anxiety disorder [id number] F41.1 Doing well on this medication Wishes [...] Name 11/18/2021 1 [place] Bre Morley Rooseveltalenacamelia [id number] 29 Notes Date Note Type Note Provider Name and Address Organization Details Recorded Time 11/18/2021 text/html Annual Calciner Feeder Post-MenopausalRe ported bypatient.[place] sharmila Symptoms:no menopausal symptoms; [...] colonoscopy Fany Child, [facility]- [address], [place], [address], [facility] 11/18/2021 13:15:19 OBGyn Episode Ob Episode Information Episode Created Date Number of Fetuses Patient Bloodtype Patient rh Status Prepregnancy Weight lbs Domestic Partner Domestic Partner Phone Father Name Psychology Technician Status 12/24/19 22 1 CLOSED Fetus Data First Name Last Name Admitted to NICU Weight (g) Sex Living Outcome Pediatric Complications Fetus ID Race Codes Race Delivery Type 3515.33 8 F Full Term 70470 Vaginal Delivery Juan Calculation Initial Juan Date [...] Domestic Partner Domestic Partner Phone Father Name Psychology Technician Status 12/24/19 22 1 CLOSED Fetus Data First Name Last Name Admitted to NICU Weight (g) Sex Living Outcome Pediatric Complications Fetus ID Race Codes Race Delivery Type 3798.83 3 M Full Term 25985 Vaginal Delivery Juan Calculation Initial Juan Date [...] Domestic Partner Domestic Partner Phone Father Name Psychology Technician Status 12/24/19 22 1 CLOSED Fetus Data First Name Last Name Admitted to NICU Weight (g) Sex Living Outcome Pediatric Complications Fetus ID Race Codes Race Delivery Type 3798.83 3 M Full Term 69433 Vaginal Delivery Juan Calculation Initial Juan Date [...]
== END 2025-01-30 15:38 | disposition home or self-care (01) ==
PROVIDERS: PCP Internal Medicine; Visit Provider Internal Medicine
DX: Z12.31 Encounter for screening mammogram for malignant neoplasm of breast (principal)
CPT/HCPCS: 77063; 77067

== ENCOUNTER 2025-03-13 08:24 | Outpatient (CLI) | payer MEDICARE, SELFPAY ==
--- OUTSIDE RECORDS SUMMARY | 2025-03-13 08:28 | XMS_ITS | Data Portability ---
Author Organization [facility] Address [address] [place] [address] Care Team Providers Care Crts Name Role Phone NITISH CURRY Primary Care Provider [phone] Assessment Encounter Date Assessment Date Assessment LastModified by Organization Details LastModified Time 11/18/2021 11/18/2021 Annual gynecological exam performed. Patient will come back in a year unless there are new symptoms. [email or web address] Not available 11/18/2021 12:53:06 Plan of Treatment Reminders Order Date Submit Date Provider Last Modified By Organization Details Last Modified Time Details Appointments None recorded. Lab None recorded. Referral None recorded. Procedures None recorded. Surgeries None recorded. Imaging None recorded. Medication Orders duloxetine 60 mg capsule,del ayed release 2021 022 [facility], [address] [place] [address], [id number], 13:07:39 Patient TargetsNo targets recorded. Patient InstructionsNo instructions recorded. Reason for Referral None Reported. Problems Name Problem SNOMED Code Status Onset Date Resolution Date Notes Provider Name and Address Organization Details Recorded Time Screenin g for malignan t neoplasm of rectum Completed 201006/14/2012 Screenin g for malignan t neoplasm s of the rectum;R ecorded Elsewher e: No [facility] ource: EHR Cephalometric Technician анна: N Practi ce ID: 0001 Christopher lable Time: 03:00:00 PM Marquita vergara [facility] 12:54:56 Screenin g for malignan t neoplasm of cervix Completed 201006/14/2012 Screenin g for malignan t neoplasm s of the cervix;R ecorded Elsewher e: No Locat ion: [facility] S ource: EHR Cephalometric Technician анна: N George ce ID: 0001 Christopher lable Time: 03:00:00 PM Marquita vergara [facility] 2 12:54:49 Speciali zed medical examinat ion Completed 201006/14/2012 Gynecolo gical Examinat ion;[place] rded Elsewher e: No Locat ion: [facility] S ource: EHR Cephalometric Technician анна: N Practi ce ID: 0001 Christopher lable Time: 03:00:00 PM Marquita vergara [facility] 2 12:55:14 Anemia [id number] Completed 201006/14/2012 Anemia;R ecorded Elsewher e: No Locat ion: [facility] S ource: EHR Cephalometric Technician анна: N Maribellti ce ID: 0001 Christopher lable Time: 03:00:00 PM Not Available [facility] 0 21:52:23 Problem Notes None recorded. Procedures Surgical History Date Name Laterality Status Provider Name and Address Organization Details Recorded Time 11/19/19 22 Date of Last Pap Smear completed Marquita Almazan [facility] 11/18/2021 12:55:21 08/02/20 20 Date of Last Mammogram completed Marquita Almazan [facility] 12/23/2021 14:11:41 08/24/19 07 Date of Last Colonoscopy completed Marquita Almazan [facility] 12/23/2021 14:18:01 08/24/19 07 Colonoscopy completed Marquita Almazan [facility] 12/23/2021 14:17:50 08/24/19 07 lumpectomy of breast completed Marquita Almazan [facility] 12/23/2021 14:18:26 08/24/19 07 cardiac catheterization completed Marquita Almazan [facility] 12/23/2021 14:18:53 08/24/18 95 cholecystectomy completed Marquita Almazan [facility] 12/23/2021 14:17:40 Imaging Results None recorded. Procedure Notes None recorded. Medical Equipment None Reported. Allergies Allergen ID Allergen Name Allergen Category Reaction Reaction Severity Criticality Documentation Date Start Date Code Code System Note Provider Name and Address Organization Details Recorded Time 08522 acetamino phen medicatio n Not available Not available Not available 08/10/2020 161 RxNorm Comme nt: [facility] C[facility] sativ e Agent : Darvo cet-N 100; Not Available [facility] 0 14:14:54 19714 aspirin medicatio n Not available Not available Not available 08/10/2020 1191 RxNorm Comme nt: [facility]; Not Available [facility] 0 14:14:54 87494 metronida zole medicatio n Not available Not available Not available 08/10/2020 6922 RxNorm Comme nt: [facility]; Not Available [facility] 0 14:14:54 16937 Darvocet- N medicatio n Not available Not available Not available 11/18/2021 75083 UNK Marquita Almazan [facility], [facility] 2 12:54:08 Medications Name Sig Start Date Stop Date Status Note LastModified by Organization Details LastModified Time carvedilo l 25 mg tablet active Not Available Not Available Not Available carvedilo l 12.5 mg tablet take 1 tablet by oral route 2 times every day with food active Prescrib ed Elsewher e: Yes Loca tion: [facility] M odify By: anthony Napoles ncounter [...] Elsewher e: No Locat ion: Robert napoles [facility] odify By: bertha Villalta nter DateTime : 03/29/20 11 10:45:24 AM Not Available Not Available Not Available pantopraz ole 20 mg tablet,de layed release take 2 tablet by ORAL route every day 11/18 completed Prescrib ed Elsewher e: Yes Loca tion: Robert napoles [facility] odify By: kaity Pascualte r DateTime : 03/29/20 11 10:45:24 AM Not Available Not Available Not Available Macrobid 100 mg capsule take 1 capsule (100MG) by oral route every 12 hours with food 07/17 completed Prescrib ed Elsewher e: No Locat ion: Robert napoles [facility] odify By: cmedical Encount er DateTime : 07/08/20 13 01:14:49 PM Not Available Not Available Not Available pantopraz ole 40 mg tablet,de layed release active Not Available Not Available Not Available Cipro 500 mg tablet take 1 tablet (500MG) by oral route every 12 hours 07/08 completed Prescrib ed Elsewher e: No Locat ion: Robert napoles [facility] odify By: cmedical Encount er DateTime : 07/08/20 13 01:14:49 PM Not Available Not Available Not Available aspirin 81 mg tablet take 1 tablet by oral route every day 11/18 completed Prescrib ed Elsewher e: Yes Loca tion: Robert napoles [facility] odify By: hemalatha Napoles ncounter DateTime : 04/21/20 11 03:00:00 PM Not Available Not Available Not Available Prempro 0.625 mg-2.5 mg tablet TAKE 1 TABLET BY MOUTH EVERY DAY 07/12 completed Prescrib ed Elsewher e: No [facility]at [facility] odify By: david arzate DateTime : 02/22/20 14 02:16:08 PM Not Available Not Available Not Available lisinopri l 40 mg tablet take 1 tablet by oral route every day active Not Available Not Available No t Available lisinopri l 2.5 mg tablet take 1 tablet by ORAL route every day 07/12 completed Prescrib ed Elsewher e: Yes Loca tion: [facility] odify By: david arzate DateTime : 03/29/20 11 10:45:24 AM Not Available Not Available Not Available buspirone 15 mg tablet take 1 tablet by oral route 2 times every day 11/18 completed Prescrib ed Elsewher e: No Locat ion: [facility] odify By: bertha Villalta nter DateTime : 07/22/20 16 08:15:00 AM Not Available Not Available Not Available Vitamins and Minerals tablet active Prescrib ed Elsewher e: Yes Loca tion: [facility] odify By: shahid shore DateTime : 07/01/20 13 09:45:00 AM Not Available Not Available Not Available Premarin 0.625 mg tablet take 1 tablet (0.625MG ) by ORAL route every day for 21 consecut stefani days, followed by 7 days off 06/14 completed Prescrib ed Elsewher e: No Locat ion: [facility] odify By: bertha Villalta nter DateTime : 03/29/20 11 10:45:24 AM Not Available Not Available Not Available duloxetin e 60 mg capsule,d elayed release active Not Available Not Available Not Available Robinson 3 Fish Oil 684 mg-1,200 mg capsule,d elayed release active Prescrib ed Elsewher e: Yes Loca tion: [facility] odify By: hemalatha rodrigez DateTime : 04/21/20 11 03:00:00 PM Not Available Not Available Not Available Vitals Date Recorded Systolic And Diastolic Provider Name and Address Organization Details Last Updated DateTime 11/18/2021 132/82 mm[Hg] Fany Child, TANGELA- [address], [place], [address], [place] [facility] 11/18/2021 13:13:40 Date Recorded Body height Body mass index (BMI) Body weight Provider Name and Address Organization Details Last Updated DateTime 11/18/2021 171.45 cm 29 kg/m2 32160.37 g Marquita Almazan [facility] 11/18/2021 12:53:50 Social History Question Answer Notes LastModified by Organizat ion Details LastModified Time Tobacco Smoking Status Never Smoker Marquita Tha null, [facility] 11/18/2021 12:56:23 Are You Blind Or Do You Have Difficulty Seeing? No [email or web address] Information n ot available 11/18/2021 What Is Your Level Of Caffeine Consumption? Moderate [email or web address] Information not available 11/18/2021 In The 14 Days Before Symptom Onset, Have You Had Close Contact With A Laboratory-confirm ed COVID-19 While That Case Was Ill? No [email or web address] Information n ot available 11/18/2021 In The 14 Days Before Symptom Onset, Have You Had Close Contact With A Person Who Is Under Investigation For COVID-19 While That Person Was Ill? No [email or web address] Information not available 11/18/2021 Have You Been To An Area Known To Be High Risk For COVID-19? No Information not available 11/18/2021 Are You Deaf Or Do You Have Serious Difficulty Hearing? No [email or web address] Information not available 11/18/2021 What Type Of Diet Are You Following? REGULAR [email or web address] Information n ot available 11/18/2021 Have You Ever Been Counseled For Unhealthy Alcohol Use? No [email or web address] Information not available 11/18/2021 Do You Use Your Seat Belt Or Car Seat Routinely? Yes [email or web address] Information not available 11/18/2021 Do You Have Smoke And Carbon Monoxide Detectors In Your Home? Yes Information not available 11/18/2021 Do You Use Sunscreen Routinely? Yes [email or web address] Information not available 11/18/2021 Has Tobacco Cessation Counseling Been Provided? No [email or web address] Information not available 11/18/2021 Do You Have Difficulty Walking Or Climbing Stairs? No [email or web address] Information not available 11/18/2021 Sex: Unknown Functional Status Question Answer Note LastModified by Organizat ion Details LastModified Time Do you use any illicit or recreational drugs? No [email or web address] Information not available 11/18/2021 Do you or have you ever used any other forms of tobacco or nicotine? No [email or web address] Information not available 11/18/2021 What is your level of alcohol consumption? Occasional [email or web address] Information not available 11/18/2021 Are you able to walk? YESWOREST [email or web address] Information not available 11/18/2021 Are you able to care for yourself? Yes [email or web address] Information n ot available 11/18/2021 Do you have difficulty dressing or bathing? No [email or web address] Information not available 11/18/2021 What is your exercise level? Occasional [email or web address] Information not available 11/18/2021 Mental Status Question Answer Note LastModified by Organization D etails LastModified Time Do you feel stressed (tense, restless, nervous, or anxious, or unable to sleep at night)? [id number] [email or web address] Information not available 11/18/2021 Family History Relationship Description Onset Age of this Age Resolved Age Notes LastModified by Organization Details LastModified Time Mother Malignant melanoma [email or web address] Not available 12/23 14:15:56 Father Diabetes mellitus [email or web address] Not available 12/23 14:16:05 Father Hypertensive disorder [email or web address] Not available 12/23 14:16:15 Son Diabetes mellitus [email or web address] Not available 12/23 14:16:29 Son Seizure [email or web address] Not availabl e 12/23/2021 14:16:51 Notes:Father: Diabetes [...] SNOMED-CT Code Diagnosis ICD10 Code Diagnosis Note [id number] Fany Child , [facility] [address] [address] 11/18/2021 11:59:33 11/18/2021 13:22:02 Gynecologic examination [id number] Z01.419 Take Calcium with Vitamin D 12-1500mg daily. Do monthly self breast exams. It is advised to get annual flu shot in the fall and she could obtain at [facility] or [facility] clinic. If you haven't received the Tdap [...] ST[facility] Screen declined (, [facility] Genetic Screen discssed Colon Screen UTD PCP Dexa Screen Due 2022 Routine Labs UTD PCPmammo ordered Loves to garden & trying to can veggies this year. Generalize d anxiety disorder [id number] F41.1 Doing well on this medication Wishes to continue. Neg suicidal thoughts or thoughts of self harm Health Concerns Section Related Observation LastModified by Organization Detai ls LastModified Time None Recorded Concern Status LastModified by Organization Details LastModified Time None Recorded Advance Directives Directive None Recorded Payers Insurance Date Sequence Insurance Name Policy Number Policy Anders Covered Member ID Anders Member ID Guarantor Name 11/18/2021 1 [facility] [id number] Bre Amina [id number] 11/20/2021 1 [facility] (MEDICARE REPLACEMENT/ ADVANTAGE - HMO) [id number] Bre Morley Amina [id number] 11/18/2021 2 [place] Bre L Amina [id number] 11/20/2021 1 [place] Bre L Amina [id number] Notes Date Note Type Note Provider Name and Address Organization Details Recorded Time 11/18/2021 text/html 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 11/18/2021 13:15:19 OBGyn Episode Ob Episode Information Episode Created Date Number of Fetuses Patient Bloodtype Patient rh Status Prepregnancy Weight lbs Domestic Partner Domestic Partner Phone Father Name Beef Killer Status 12/24/19 22 1 CLOSED Fetus Data First Name Last Name Admitted to NICU Weight (g) Sex Living Outcome Pediatric Complications Fetus ID Race Codes Race Delivery Type 3515.33 8 F Full Term 45013 Vaginal Delivery Juan Calculation Initial Juan Date [...] Domestic Partner Domestic Partner Phone Father Name Beef Killer Status 12/24/19 22 1 CLOSED Fetus Data First Name Last Name Admitted to NICU Weight (g) Sex Living Outcome Pediatric Complications Fetus ID Race Codes Race Delivery Type 3798.83 3 M Full Term 42306 Vaginal Delivery Juan Calculation Initial Juan Date Initial Exam Date Initial Exam Provider Initial Ultrasound Date Last Menstrual Period Date Ultra Sound Weeks Gestation 0 Eighteen To Twenty Week Juan Update Ultra Sound Date Fundal Height At Umbil Quickening Date Ultra Sound Latest Weeks Gestation Final Juna Confirmed By Final Juan Confirmed Date Final [...] Domestic Partner Domestic Partner Phone Father Name Beef Killer Status 12/24/19 22 1 CLOSED Fetus Data First Name Last Name Admitted to NICU Weight (g) Sex Living Outcome Pediatric Complications Fetus ID Race Codes Race Delivery Type 3798.83 3 M Full Term 39092 Vaginal Delivery Juan Calculation Initial Juan Date [...]
--- OUTSIDE RECORDS SUMMARY | 2025-03-13 08:28 | XMS_ITS | Clinical Summary ---
Author Organization [facility] Address [address] [place] [address] Care Team Providers Care Office Services Clerk Name Role Phone Unavailable Primary Care Provider Unavailabl e Social History Tobacco Use Types Packs/Day Years Used Date Smoking Tobacco: Never Assessed Comments Unknown Sex and Gender Information Value Date Recorded Sex Assigned at Not on file Legal Sex Female 2:46 PM [place] Gender Identity Not on file Sexual Orientation Not on file Plan of Treatment Health Maintenance Due Date Last Done Comments Colorectal Cancer Screening Colonoscopy (10 Years) 1952 Hepatitis C 1970 DTaP, Tdap and Td Vaccines ( 1 - Tdap) 1971 Mammogram Screening 1992 Pneumococcal Vaccine: 50+ Ye ars (1 of 1 - PCV) 2002 Zoster Vaccines (1 of 2) 2002 Dexa Scan (General) 2017 COVID-19 Vaccine ( - 2023-2 5 season) 2024 RSV Immunization or 60+ Years (1 - 1-dose 75+ series) 2027 Meningococcal B Vaccine Aged Out No l onger eligible based on patient's age to complete this topic Meningococcal Vaccine Aged Out No tashi queenie eligible based on patient's age to complete this topic RSV Immunizations Under 20 Months Aged Out No longer eligible based on patient's age to complete this topic
[2025-03-13 08:48] LABS: Hematocrit 38.8 % (37.0-47.0); Hemoglobin 12.7 g/dL (12.0-15.0); Immature Granulocyte Percent A 0.3 % (0-0.5); Lymphocytes Absolute Auto 2.86 K/mm3 (0.9-3.2); Mean Corpuscular HGB Conc 32.7 g/dl (32-36); Mean Corpuscular Hemoglobin 32.9 pg (26-34); Mean Corpuscular Volume 100.5 fl (80-100); Nucleated Red Blood Cells Absolute Auto 0.000 K/mm3 (0.0-0.012); Nucleated Red Blood Cells Perc 0.0 % (0.0-0.2); Platelet Count Result 250 k/mm3 (150-375); Red Blood Count 3.86 M/mm3 (4.2-5.4); White Blood Count 7.6 K/mm3 (4.5-10.0)
[2025-03-13 09:12] LABS: Alanine Aminotransferase 16 U/L (6-35); Albumin Level 4.2 g/dL (3.5-5.1); Alkaline Phosphatase 86 U/L (38-126); Anion Gap 10 mmol/L (4-12); Aspartate Amino Transferase 27 U/L (14-36); Bilirubin,Total 0.4 mg/dL (0.2-1.3); Blood Urea Nitrogen 19 mg/dL (7-17); Calcium 9.7 mg/dL (8.4-10.2); Carbon Dioxide 25 mmol/L (22-30); Chloride 107 mmol/L (98-107); Cholesterol 284 mg/dL (0-200); Estimated Glomerular Filt Rate 41; Glucose 121 mg/dL (65-110); HDL Direct 38 mg/dL; Potassium 3.8 mmol/L (3.4-5.0); Sodium 142 mmol/L (137-145); Total Protein 8.1 g/dL (6.3-8.2); Triglycerides 152 mg/dL (<150)
[2025-03-13 09:30] LABS: Free T4 Free Thyroxine 0.61 ng/dL (0.78-2.19)
[2025-03-13 09:47] LABS: Thyroid Stimulating Hormone 7.000 uIU/mL (0.465-4.680)
[2025-03-13 10:28] LABS: Hemoglobin A1C 5.5 % (<5.7)
== END 2025-03-13 08:25 | disposition home or self-care (01) ==
PROVIDERS: PCP Internal Medicine; Visit Provider Internal Medicine
DX: E78.5 Hyperlipidemia, unspecified (principal); I10 Essential (primary) hypertension; R73.9 Hyperglycemia, unspecified; E03.9 Hypothyroidism, unspecified
CPT/HCPCS: 36415; 80053; 80061; 83036; 84439; 84443; 85025

== ENCOUNTER 2025-05-21 09:40 | Emergency (ER) | payer MEDICARE, SELFPAY ==
--- NOTE | ~2025-05-21 | CT_ITS ---
CT abdomen pelvis w con Clinical History: abd pain/diarrhea, hx diverticulitis . Comparison: 08/12/2024 Technique: Axial images lung bases to symphysis pubis IV contrast information not listed in PACS Coronal, sagittal reformats CT images acquired with automatic exposure control for dose reduction DLP: 494 mGy-cm Findings: Lung bases: Clear. Visualized heart and pericardium: Unremarkable. Liver: Steatosis. Gallbladder: Removed. Spleen: Unremarkable. Pancreas: Unremarkable. Adrenal glands: Unremarkable. Kidneys: Right kidney- No hydronephrosis. No renal stones. Left kidney- No hydronephrosis. No renal stones. Distal esophagus/stomach: Unremarkable. Small bowel loops: Normal caliber and wall thickness. Colon: Diverticula. Apparent diffuse wall thickening but under distended. Normal RLQ appendix. Nodes: No enlarged nodes. Peritoneum: No ascites. No free air. Urinary bladder: Wall thickening but under distended. Uterus: Unremarkable. Adnexa: No masses. Bones: No acute bony abnormality. Soft tissues: Unremarkable. Aorta: No aneurysm or dissection. Atherosclerotic disease. IVC: Unremarkable. Main portal vein/SMV/splenic vein: Patent. IMPRESSION: 1. Mild inflammatory or infectious colitis. Reviewed, dictated and finalized at location R.
[2025-05-21 09:49] VITALS: BP 165/65; PULSE 66; RESP 16; TEMP 36.4; O2SAT 100
--- NOTE | 2025-05-21 10:02 | PC.NURSE ---
Pt. states she does not have to urinate at this time but will press her call light when she is able to provide a sample.
[2025-05-21 10:13] LABS: Hematocrit 37.6 % (37.0-47.0); Hemoglobin 12.8 g/dL (12.0-15.0); Immature Granulocyte Percent A 0.1 % (0-0.5); Lymphocytes Absolute Auto 2.13 K/mm3 (0.9-3.2); Mean Corpuscular HGB Conc 34.0 g/dl (32-36); Mean Corpuscular Hemoglobin 33.4 pg (26-34); Mean Corpuscular Volume 98.2 fl (80-100); Nucleated Red Blood Cells Absolute Auto 0.000 K/mm3 (0.0-0.012); Nucleated Red Blood Cells Perc 0.0 % (0.0-0.2); Platelet Count Result 248 k/mm3 (150-375); Red Blood Count 3.83 M/mm3 (4.2-5.4); White Blood Count 8.9 K/mm3 (4.5-10.0)
--- NOTE | 2025-05-21 10:21 | ED_ITS ---
HPI - Abdominal Pain General Chief Complaint: Abdominal Pain Stated Complaint: abd pain, nausea, diarrhea, no vomiting Time Seen by Provider: 05/21/25 10:01 Mode of arrival: ambulatory Limitations: no limitations History of Present Illness HPI narrative: This is a 74-year-old female with a history of hypertension, hyperlipidemia, hypothyroidism, diverticulitis who presents the ED for abdominal pain. Patient states that for the past 5 days, she has been having abdominal pain and diarrhea approximately an hour after eating. She states that only lasts for 15-20 minutes before self-resolving. She has had no nausea or vomiting. She does have a history of diverticulitis but this was several years ago. Denies fevers, chills, chest pain, shortness of breath. She has had a cholecystectomy. Related Data Home Medications ?Medication ?Instructions ?Recorded ?Confirmed ?Last Taken ?Type apple cider vinegar 300 mg tablet 300 mg PO DAILY 11/2203/15/25 Unknown History ascorbic acid 100 mg-elderberry 1 tablet PO DAILY 11/2203/15/25 Unknown History fruit 50 mg chewable tablet (Airborne (elderberry)) cholecalciferol (vitamin D3) 25 25 mcg PO DAILY 03/15/25 Unknown History mcg (1,000 unit) capsule mecobalamin (vitamin B12) 1,000 1,000 mcg PO DAILY 07/1503/15/25 Unknown History mcg chewable tablet Allergies Allergy/AdvReac Type Severity Reaction Status Date / Time aspirin Allergy Intermediate Abdominal Verified 05/21/25 09:41 Pain tetracycline Allergy Mild UNKNOWN Verified 05/21/25 09:41 Sulfa (Sulfonamide AdvReac Intermediate Nausea Verified 05/21/25 09:41 Antibiotics) hydrocodone AdvReac Mild INCREASED Verified 05/21/25 09:41 HEART RATE metronidazole AdvReac Mild NAUSEA/VOMI Verified 05/21/25 09:41 TING propoxyphene AdvReac Mild INCREASED Verified 05/21/25 09:41 HR Review of Systems 2 Review of Systems: Gen.: Denies fevers or chills Eyes: Denies eye pain or visual change ENT: Denies congestion Respiratory: Denies shortness of breath or cough CV: Denies chest pain or palpitations GI: As per HPI denies burning, urgency, frequency or hematuria Musculoskeletal: Denies back pain or muscle pain Neuro: Denies numbness, tingling, weakness or focal weakness Skin: Denies rash Except as documented, all other systems reviewed and negative [facility] Past Medical History Medical History CRF (chronic renal failure) Adult general medical exam Dysuria Hypercholesteremia Colon cancer screening Allergic rhinitis, unspecified Lumbar stenosis with neurogenic claudication Lumbar stenosis History of mitral valve prolapse Anemia Hyperlipidemia Hyperglycemia Essential (primary) hypertension Gastro-esophageal reflux disease without esophagitis Surgical History Surgical History History of cholecystectomy Family History Family History Sibling Family history of diabetes mellitus in first degree relative, Onset Age: 20 Patient's brother is Family history of lung cancer Mother Patient's mother is Father Patient's father is Social History Social History Smoking status: Never smoker Second hand tobacco smoke exposure: No Alcohol intake: never Substance use: never Lack of Transportation: No Lack of Food: Never True Current Housing: I Have Housing Concerned About Future Housing: No Difficulty Paying Gas/Electric Bills: No Difficulty Paying for Meds: No Currently Unemployed: No Education: Associate Degree Difficulty w/ Childcare or Family Care: No Gender identity (if verbalized by the patient): Female Exam 2 Narrative: APPEARANCE: No acute distress, nontoxic, resting in bed EYES: EOMI HEENT: Normocephalic, atraumatic, OMM RESPIRATORY: No respiratory distress Clear to auscultation bilaterally with no rhonchi wheezing or rales. CARDIOVASCULAR: Regular rate and rhythm without murmurs rubs or gallops. ABDOMINAL: Soft, nontender, nondistended, no rebound or guarding MUSCULOSKELETAl: Moves all extremities. No clubbing, cyanosis or edema. NEURO: Awake and alert. Following commands, speech normal, no focal deficits SKIN:: Warm, dry. No rashes lesions or abrasions PSYCHIATRIC: Normal affect/mood, Course Vital Signs Vital signs: Vital Signs Temperature 97.6 F 05/21/25 09:49 Pulse Rate 66 05/21/25 09:49 Respiratory Rate 16 05/21/25 09:49 Blood Pressure 165/65 H 05/21/25 09:49 Pulse Oximetry 100 05/21/25 09:49 Oxygen Delivery Room Air 05/21/25 09:49 Temperature 97.6 F 05/21/25 09:49 Pulse Rate 66 05/21/25 09:49 Respiratory Rate 16 05/21/25 09:49 Blood Pressure 165/65 H 05/21/25 09:49 Pulse Oximetry 100 05/21/25 09:49 Oxygen Delivery Room Air 05/21/25 09:49 MDM - Abdominal Pain MDM Narrative Medical decision making narrative: 74-year-old female presenting for abdominal pain with diarrhea. On initial evaluation, patient was in no acute distress, afebrile, hemodynamically stable. Abdomen was soft and nontender. Patient was given 1 L NS bolus. CBC was without significant abnormalities. Creatinine was mildly elevated 1.2 but this is her baseline. Anion gap was 13 with bicarb at 20, suspect mild dehydration. CT abdomen/pelvis consistent with colitis, no evidence of diverticulitis. UA was more consistent with a contaminated specimen. She has no urinary symptoms at this time so she will not be treated for UTI. Patient was deemed appropriate for discharge at this time. She is educated on supportive treatment including Tylenol/ibuprofen and a bland diet. Patient and family were agreeable to this plan. Given strict return precautions. Differential Diagnosis Differential diagnosis: Likely abdominal pain, constipation, diverticulitis, small bowel obstruction and other (Enterocolitis, colitis, gastroenteritis) Medical Records Attestation: I reviewed the patient's medical records. Lab Data Attestation: I reviewed the patient's lab results. 05/21/25 10:03 05/21/25 10:03 Labs: Lab Results 05/21/25 05/21/25 Range/Units 10:03 10:58 WBC 8.9 (4.5-10.0) K/mm3 RBC 3.83 L (4.2-5.4) M/mm3 Hgb 12.8 (12.0-15.0) g/dL Hct 37.6 (37.0-47.0) % MCV 98.2 (80-100) fl MCH 33.4 (26-34) pg MCHC 34.0 (32-36) g/dl RDW 13.9 (11.5-14.5) % Plt Count 248 (150-375) k/mm3 MPV 10.8 H (7.4-10.4) fl Immature Gran % (Auto) 0.1 (0-0.5) % Neut % (Auto) 67.2 (45.5-73.1) % Lymph % (Auto) 24.0 (18.3-44.2) % [place] % (Auto) 5.3 (2.6-8.5) % Eos % (Auto) 2.7 (0-4.4) % Baso % (Auto) 0.7 (0.2-1.2) % Lymph # (Auto) 2.13 (0.9-3.2) K/mm3 [place] # (Auto) 0.5 (0.1-0.6) K/mm3 Eos # (Auto) 0.2 (0-0.3) K/mm3 Baso # (Auto) 0.1 (0.0-0.1) K/mm3 Abs Immat Gran (auto) 0.01 (0.00-0.031) K/mm3 Absolute Neuts (auto) 6.0 (1.3-6.7) K/mm3 Absolute Nucleated RBC 0.000 (0.0-0.012) K/mm3 Nucleated RBC % 0.0 (0.0-0.2) % Sodium 140 (137-145) mmol/L Potassium 3.6 (3.4-5.0) mmol/L Chloride 107 (98-107) mmol/L Carbon Dioxide 20 L (22-30) mmol/L Anion Gap 13 H (4-12) mmol/L BUN 20 H (7-17) mg/dL Creatinine 1.20 H (0.7-1.0) mg/dL Estim Creat Clear Calc 40 ml/min Estimated GFR 44 L (59 - ) Glucose 135 H (65-110) mg/dL Calcium 9.5 (8.4-10.2) mg/dL Total Bilirubin 1.0 (0.2-1.3) mg/dL AST 30 (14-36) U/L ALT 18 (6-35) U/L Alkaline Phosphatase 85 (38-126) U/L Total Protein 8.7 H (6.3-8.2) g/dL Albumin 4.6 (3.5-5.1) g/dL Lipase 62 (23-300) U/L Urine Color Yellow (Yellow) Urine Appearance Turbid H (Clear) Urine pH 5.5 (5.0-9.0) Ur Specific [place] 1.015 (1.001-1.035) Urine Protein Trace (Negative) mg/dL Urine Glucose (UA) Negative (Negative) mg/dL Urine Ketones Negative (Negative) mg/dL Ur Blood (Man) Trace (Negative) Urine Nitrate Positive H (Negative) Urine Bilirubin Negative (Negative) Urine Urobilinogen 0.2 (<2.0) mg/dL Leukocyte Esterase Rfl 3+ H (Negative) SHANNON/UL Urine RBC 0-2 (0-2) /hpf Urine WBC >100 H (0-3) /hpf Ur Squamous Epith Cells Moderate (Few) /hpf Urine Bacteria 4+ H /hpf Urine Casts 0-2 Imaging Data Attestation: I personally reviewed and interpreted this imaging study as follows: (I reviewed the radiologist's interpretations) Radiologist's impression: ITS Impressions Abdomen/Pelvis CT 05/21/25 11:23 IMPRESSION: 1. Mild inflammatory or infectious colitis. Discharge Plan Discharge Clinical Impression: Colitis Patient Disposition: Home Condition: Stable Instructions: Antibiotic Form Additional Instructions: Take Tylenol and ibuprofen for pain. Your given a short prescription for Zofran, take this as prescribed. Continue to drink plenty of fluids. You may try a bland diet. Follow-up with your PCP in the next week for re-evaluation. Return to the ED for any new or worsening symptoms. Patient Language: Icelandic Prescriptions: New ondansetron 4 mg tablet,disintegrating 4 mg PO Q8H PRN (Reason: nausea and vomiting) Qty: 14 0RF No Action ascorbic acid-elderberry fruit [Airborne (elderberry)] 100-50 mg tablet,chewable 1 tablet PO DAILY apple cider vinegar 300 mg tablet 300 mg PO DAILY cholecalciferol (vitamin D3) 25 mcg (1,000 unit) capsule 25 mcg PO DAILY mecobalamin (vitamin B12) 1,000 mcg tablet,chewable 1,000 mcg PO DAILY duloxetine 60 mg capsule,delayed release(DR/EC) 60 mg PO .COMPLEX Qty: 45 3RF Rx Instructions: One every other day meclizine 12.5 mg tablet 12.5 mg PO TID PRN (Reason: dizziness) Qty: 14 1RF ondansetron 4 mg tablet,disintegrating 4 mg PO Q8H PRN (Reason: nausea and vomiting) Qty: 30 0RF dicyclomine 20 mg tablet 20 mg PO BID Qty: 30 0RF cyclobenzaprine 10 mg tablet 10 mg PO TID PRN (Reason: muscle spasm) Qty: 20 0RF colchicine 0.6 mg tablet 0.6 mg PO ONCE Qty: 1 0RF indomethacin 50 mg capsule 50 mg PO TID Qty: 30 0RF Rx Instructions: administer with food or milk levothyroxine 25 mcg tablet 25 mcg PO DAILY Qty: 90 3RF carvedilol 25 mg tablet 25 mg PO BID Qty: 180 3RF lisinopril 40 mg tablet See Rx Instructions .ROUTE .COMPLEX Qty: 100 2RF Dose Instruction: TAKE 1 TABLET BY MOUTH DAILY Rx Instructions: TAKE 1 TABLET BY MOUTH DAILY pantoprazole 40 mg tablet,delayed release (DR/EC) 40 mg PO QAM Qty: 100 3RF allopurinol 300 mg tablet 300 mg PO DAILY Qty: 90 3RF Follow-up/Referrals: Armando Fernandes DO [Primary Care Provider, Internal Medicine]
[2025-05-21 10:33] LABS: Alanine Aminotransferase 18 U/L (6-35); Albumin Level 4.6 g/dL (3.5-5.1); Alkaline Phosphatase 85 U/L (38-126); Anion Gap 13 mmol/L (4-12); Aspartate Amino Transferase 30 U/L (14-36); Bilirubin,Total 1.0 mg/dL (0.2-1.3); Blood Urea Nitrogen 20 mg/dL (7-17); Calcium 9.5 mg/dL (8.4-10.2); Carbon Dioxide 20 mmol/L (22-30); Chloride 107 mmol/L (98-107); Estimated CRCL calculation 40 ml/min; Estimated Glomerular Filt Rate 44; Glucose 135 mg/dL (65-110); Lipase 62 U/L (23-300); Potassium 3.6 mmol/L (3.4-5.0); Sodium 140 mmol/L (137-145); Total Protein 8.7 g/dL (6.3-8.2)
--- NOTE | 2025-05-21 10:55 | PC.NURSE ---
Pt. ambulatory with a steady gait to bathroom to provide urine sample.
[2025-05-21] MEDS: SODIUM CHLORIDE 0.9% IV 1,000 ML 999 ML IV CONT (11:02)
--- NOTE | 2025-05-21 11:11 | PC.NURSE ---
Pt. to CT.
[2025-05-21 11:13] LABS: Add Urine Microscopic? YES; Appearance Urine Turbid (Clear); Glucose Urine UA Negative (Negative); Leukocyte Esterase Ur 3+ LEU/UL (Negative); Nitrate Urine Positive (Negative); Non Pathogenic Casts 0-2; Specific Grav Ur 1.015 (1.001-1.035)
--- NOTE | 2025-05-21 12:02 | PC.NURSE ---
IV fluids still infusing. Will d/c pt. when they complete.
[2025-05-21 12:31] VITALS: BP 159/76; PULSE 57; RESP 18; O2SAT 100
== END 2025-05-21 12:45 | disposition home or self-care (01) ==
PROVIDERS: Emergency Medicine; Emergency Provider Student in an Organized Health Care Education/Training Program; PCP Internal Medicine
DX: K52.9 Noninfective gastroenteritis and colitis, unspecified (principal); E78.5 Hyperlipidemia, unspecified; D64.9 Anemia, unspecified; I10 Essential (primary) hypertension; K21.9 Gastro-esophageal reflux disease without esophagitis
CPT/HCPCS: 36415; 74177; 80053; 81001; 83690; 85025; 96360; 99284; J7030; Q9967